=== PATIENT | male | born 1965 | race Hispanic/Latino ===

== ENCOUNTER 2016-10-22 07:37 | Inpatient (IN) | payer MEDICARE, MEDICAID ==
[2016-10-22 07:47] VITALS: BMI 32.5
[2016-10-22] MEDS ORDERED: Sodium Chloride 0.9% 1,000 ML IV STA (08:49)
[2016-10-22 08:52] LABS: ADD MANUAL DIFF? NO
--- NOTE | 2016-10-22 08:59 | RAD ---
HISTORY: syncope COMPARISON: 01/18/2016 FINDINGS: LUNGS: No active pulmonary disease. PLEURA: No significant pleural effusion identified, no pneumothorax apparent. CARDIOVASCULAR: Normal. OSSEOUS STRUCTURES: No significant abnormalities. VISUALIZED UPPER ABDOMEN: Normal. OTHER FINDINGS: None. IMPRESSION: No active disease.
[2016-10-22 09:05] LABS: BASO # 0.01 K/mm3 (0.0-2.0); BASO % 0.1 % (0.0-3.0); EOS % 0.2 % (1.5-5.0); GRAN # 11.09 (1.4-6.5); GRAN % 89.8 % (50.0-68.0); HEMATOCRIT 35.5 % (42.0-52.0); LYMPH # 0.5 (1.2-3.4); LYMPH % 3.7 % (22.0-35.0); MEAN CELL VOLUME 87.2 fL (80.0-105.0); MEAN CORPUSCULAR HEMOGLOBIN 30.7 pg (25.0-35.0); MEAN CORPUSCULAR HGB CONC 35.2 g/dl (31.0-37.0); MEAN PLATELET VOLUME 10.9 fl (7.0-11.0); MONO # 0.8 (0.1-0.6); MONO % 6.2 % (1.0-6.0); PLATELET COUNT 85 10^3/uL (120.0-450.0); RED CELL DISTRIBUTION WIDTH 13.1 % (11.5-14.5); WHITE BLOOD COUNT 12.3 10^3/ul (4.5-11.0)
[2016-10-22 09:09] LABS: ALB/GLOB RATIO 1.1 (1.1-1.8); BILIRUBIN,TOTAL 2.1 mg/dL (0.2-1.3); CALCIUM 9.3 mg/dL (8.4-10.5); POTASSIUM 4.5 mmol/L (3.6-5.0); TOTAL PROTEIN 8.1 g/dL (5.8-8.3)
[2016-10-22 09:14] LABS: INR 1.04 (0.93-1.08); PARTIAL THROMBOPLASTIN TIME 26.1 Seconds (23.7-30.8)
[2016-10-22 09:25] LABS: TROPONIN I 0.01 ng/mL
--- NOTE | 2016-10-22 09:30 | ED PDOC ---
Arrival/HPI - General Chief Complaint: Syncope Time Seen by Provider: 10/22/16 08:03 Historian: Patient - History of Present Illness Narrative History of Present Illness (Text): 10/22/16 08:00 A 51 year old male, whose past medical history includes reoccurring syncopal episodes, who presents to the emergency department for evaluation after a syncopal episode. Patient reports for the past 2-3 days he has had multiple syncopal episodes. He states 1 hour prior to arrival, he stoop up and walked a few steps, when be began to feel dizzy and "passed-out." Patient reports right shoulder pain that began after the fall. He states after "passing out" he is able to get up on his own and feels completely fine. Patient denies any chest pain, shortness of breath, nausea, vomiting, or other complaints at this time. PMD: Dr. Monet Time/Duration: 1 hour Symptom Onset: Sudden Symptom Course: Resolved Quality: Other Activities at Onset: Light Context: Walking, Home Past Medical History - Provider Review Nursing Documentation Reviewed: Yes - Infectious Disease Hx of Infectious Diseases: None - Cardiac Hx Cardiac Disorders: No - Pulmonary Hx Respiratory Disorders: No - Neurological Hx Neurological Disorder: No - HEENT Hx HEENT Disorder: No - Renal Hx Renal Disorder: No - Endocrine/Metabolic Hx Endocrine Disorders: Yes Hx Diabetes Mellitus Type 2: Yes - Hematological/Oncological Hx Blood Disorders: No - Integumentary Hx Dermatological Disorder: No - Musculoskeletal/Rheumatological Hx Musculoskeletal Disorders: No - Gastrointestinal Hx Gastrointestinal Disorders: No - Genitourinary/Gynecological Hx Genitourinary Disorders: No - Psychiatric Hx Psychophysiologic Disorder: No Hx Bipolar Disorder: Yes Hx Substance Use: No - Surgical History Hx Thyroidectomy: Yes - Anesthesia Hx Anesthesia: No Hx Anesthesia Reactions: No Hx Malignant Hyperthermia: No Family/Social History - Physician Review Nursing Documentation Reviewed: Yes Family/Social History: Unknown Family HX Smoking Status: Never Smoked Hx Alcohol Use: No Hx Substance Use: No Allergies/Home Meds Allergies/Adverse Reactions: Allergies No Known Allergies Allergy (Verified 10/22/16 07:46) Home Medications: Home Meds Medication Instructions Recorded Confirmed Ativan 1 mg PO BID 01/19/16 10/22/16 Paliperidone Palmitate [Invega 156 mg IM Q30D 01/19/16 10/22/16 Sustenna] metFORMIN [glucOPHAGE] 850 mg PO BID 01/19/16 10/22/16 Review of Systems - Review of Systems Constitutional: absent: Fevers Eyes: absent: Vision Changes ENT: absent: Rhinorrhea Respiratory: absent: SOB, Cough Cardiovascular: Syncope. absent: Chest Pain Gastrointestinal: absent: Abdominal Pain, Nausea, Vomiting Genitourinary Male: absent: Dysuria Musculoskeletal: Other (right shoulder pain). absent: Back Pain, Neck Pain Skin: absent: Rash Neurological: Dizziness. absent: Headache Endocrine: absent: Polyuria Psychiatric: absent: Depression Physical Exam - Physical Exam Narrative Physical Exam (Text): Head: Atraumatic. Normocephalic. Eyes: PERRL. EOMI. Conjunctivae are not pale. ENT: Mucous membranes are moist and intact. Oropharynx is clear and symmetric. Neck: Supple. Full ROM. No JVD. No lymphadenopathy. Cardiovascular: Tachycardia. Regular rhythm. No murmurs, rubs, or gallops. Distal pulses are 2+ and symmetric. Pulmonary/Chest: No evidence of respiratory distress. Clear to auscultation bilaterally. No wheezing, rales or rhonchi. Abdominal: Soft and non-distended. There is no tenderness. No rebound, guarding, or rigidity. No organomegaly. Good bowel sounds. Back: No CVA tenderness. No midline pain or deformity. Extremities: No edema. No cyanosis. No clubbing. No calf tenderness. Tenderness to the right shoulder with palpation and range of motion. Deformity noted. NO clavicular pain. Distal pulses inatct. Skin: Skin is warm and dry. No petechiae. No purpura. Pale. Neurological: Alert, awake, and oriented to person, place, time, and situation. Normal speech. Motor and sensory intact. No meningeal signs. Psychiatric: Good eye contact. Normal interaction, affect, and behavior. 10/23/16 08:18 Vital Signs Reviewed: Yes Vital Signs Temp Pulse Resp BP Pulse Ox 10/22/16 13:38 101 H 19 130/40 L 100 10/22/16 11:38 96 H 19 110/51 L 100 10/22/16 09:38 98 H 18 99/60 L 100 10/22/16 07:40 98.2 F 101 H 18 102/51 L 100 Temperature: Afebrile Blood Pressure: Hypotensive Pulse: Regular Respiratory Rate: Tachypneic Appearance: Positive for: Well-Appearing, Non-Toxic, Comfortable Pain Distress: None Mental Status: Positive for: Alert and Oriented X 3 Finger Stick Blood Glucose: 145 Medical Decision Making ED Course and Treatment: 10/22/16 08:00 Impression: A 51 year old male for evaluation after a syncopal episode. Patient also complains of right shoulder pain. Differential Diagnosis include but are not limited to: vasovagal syncope vs. electrolyte imbalance vs. ACS vs. fracture vs. sprain Plan: Will obtain EKG, Chest X-ray and labs to rule out cardiac causes. Will obtain right shoulder x-ray to rule out fractures. Will give patient IV fluids and reevaluate. Prior Visits: Notes and results from previous visits were reviewed. The patient last presented to the emergency department on 01/18/16 for evaluation after a syncopal episode. Progress Notes: Patient states that "in the past" he would "pass out a lot". He states he does not know the reason why this happened in the past. He reports multiple episodes of passing out over the past several days. States that he will "take a few steps" then "I feel a little dizzy then I pass out". He reports some back pain from fall two days ago. Denies incontinence or tongue biting. States that he "gets right up" and "I feel fine after". Reports he did not seek evaluation as he feels better immediately. This am he reports shoulder injury after fall. 10/22/16 09:00 Chest X-ray: Creator : Masood Mckinney MD COMPARISON: 01/18/2016 FINDINGS: LUNGS: No active pulmonary disease. PLEURA: No significant pleural effusion identified, no pneumothorax apparent. CARDIOVASCULAR: Normal. OSSEOUS STRUCTURES: No significant abnormalities. VISUALIZED UPPER ABDOMEN: Normal. OTHER FINDINGS: None. IMPRESSION: No active disease. 10/22/16 11:[address]: Creator : Masood Mckinney MD COMPARISON: 01/18/2016 FINDINGS: HEMORRHAGE: No intracranial hemorrhage. BRAIN: No mass effect or edema. Mild diffuse atrophy consistent with age. No evidence of acute infarct. VENTRICLES: Unremarkable. No hydrocephalus. CALVARIUM: Unremarkable. PARANASAL SINUSES: Unremarkable as visualized. No significant inflammatory changes. MASTOID AIR CELLS: Unremarkable as visualized. No inflammatory changes. OTHER FINDINGS: None. IMPRESSION: No intracranial mass, hemorrhage or evidence of acute infarct. No interval change. 10/22/16 12:00 Right Shoulder X-ray: Creator : David Cast MD COMPARISON: No prior. FINDINGS: BONES: There is a displaced comminuted fracture of the humeral neck JOINTS: Normal. Glenohumeral and acromioclavicular joints preserved. No osteoarthritis. SOFT TISSUES: Normal. OTHER FINDINGS: None. IMPRESSION: There is a displaced comminuted fracture of the humeral neck 10/22/16 12:01 Shoulder fracture reviewed with patient, who states PMD is Dr. Monet. Sling applied, patient reports no significant pain while in sling. NV intact. He has no focal neuro deficits, on re-exam BP is improved. CR mildly elevated but he denies vomiting or diarrhea or decreased po intake. WBC elevated although afebrile. Given repeated syncopal episodes will admit to telemetry for further cardiac and neurologic monitoring. Case discussed with Dr. Bauman, covering for DR. Monet, who is aware and agrees with the plan to admit the patient to Telemetry under his services for syncope and shoulder fracture. Dr. Kerns consulted. I have discussed the results and plan with the patient, who expresses understanding. Patient given the opportunity to ask question, all questions were answered and there is agreement with the plan to be admitted to the hospital. 10/23/16 08:20 - Lab Interpretations Lab Results: 10/22/16 08:44 10/22/16 08:44 Lab Results 10/22/16 08:44: WBC 12.3 H D, RBC 4.07, Hgb 12.5 L, Hct 35.5 L, MCV 87.2, MCH 30.7, MCHC 35.2, RDW 13.1, Plt Count 85 L, MPV 10.9, Gran % 89.8 H, Lymph % ( Auto) 3.7 L, [place] % (Auto) 6.2 H, Eos % (Auto) 0.2 L, Baso % (Auto) 0.1, Gran # 11.09 H, Lymph # 0.5 L, [place] # 0.8 H, Eos # 0.0, Baso # 0.01, PT 11.2, INR 1.04 , APTT 26.1, Sodium 138, Potassium 4.5, Chloride 101, Carbon Dioxide 20 L, Anion Gap 22 H, BUN 29 H, Creatinine 1.6 H, Est GFR ( Amer) 56, Est GFR ( Non-Af Amer) 46, Random Glucose 140 H, Calcium 9.3, Total Bilirubin 2.1 H, AST 20, ALT 28, Alkaline Phosphatase 76, Lactate Dehydrogenase 307 L, Total Creatine Kinase 97, Troponin I 0.01, Total Protein 8.1, Albumin 4.3, Globulin 3.8, Albumin/Globulin Ratio 1.1 10/22/16 07:58: POC Glucose (mg/dL) 145 H I have reviewed the lab results: Yes - RAD Interpretation Radiology Orders: 10/22/16 08:26 SHOULDER RIGHT [RAD] Stat 10/22/16 08:28 CHEST PORTABLE [RAD] Stat 10/22/16 11:17 HEAD W/O CONTRAST [CT] Stat - Medication Orders Current Medication Orders: Sodium Chloride (Sodium Chloride 0.9%) 1,000 mls @ 100 mls/hr IV .Q10H STEPH Last Admin: 10/23/16 02:28 Dose: 100 MLS/HR eMAR Start Stop Document 10/23/16 02:28 FDE (Rec: 10/23/16 02:28 FDE [facility] [id number]) Intravenous Solution Start Date 10/23/16 Start Time 02:28 Metformin HCl (Glucophage) 850 mg PO BID STEPH Last Admin: 10/22/16 18:26 Dose: 850 MG Non-Formulary Medication (Paliperidone Palmitate [Invega Sustenna]) 156 mg IM Q30D STEPH Discontinued Medications Sodium Chloride (Sodium Chloride 0.9%) 1,000 mls @ 1,000 mls/hr IV .Q1H STA Stop: 10/22/16 09:48 Last Admin: 10/22/16 08:58 Dose: 1,000 MLS/HR eMAR Start Stop Document 10/22/16 08:58 OCS (Rec: 10/22/16 08:58 OCS [facility] [email or web address]) Intravenous Solution Start Date 10/22/16 Start Time 08:58 - Scribe Statement The provider has reviewed the documentation as recorded by the Scribe Fe Nguyen Provider Scribe Attestation: All medical record entries made by the Scribe were at my direction and personally dictated by me. I have reviewed the chart and agree that the record accurately reflects my personal performance of the history, physical exam, medical decision making, and the department course for this patient. I have also personally directed, reviewed, and agree with the discharge instructions and disposition. Disposition/Present on Arrival - Present on Arrival Any Indicators Present on Arrival: No History of DVT/PE: No History of Uncontrolled Diabetes: No Urinary Catheter: No History of Decub. Ulcer: No History Surgical Site Infection Following: None - Disposition Have Diagnosis and Disposition been Completed?: Yes Diagnosis: Syncope, Shoulder fracture, Renal insufficiency Disposition: HOSPITALIZED Disposition Time: 12:01 Patient Plan: Admission Patient Problems: Current Active Problems Problem Status Diagnosed Shoulder fracture Acute Syncope Acute Condition: FAIR
--- NOTE | 2016-10-22 11:52 | CT ---
PROCEDURE: CT HEAD WITHOUT CONTRAST. HISTORY: syncope COMPARISON: 01/18/2016 TECHNIQUE: Axial computed tomography images were obtained through the head/brain without intravenous contrast. Radiation dose: Total exam DLP = 725.84 mGy-cm. This CT exam was performed using one or more of the following dose reduction techniques: Automated exposure control, adjustment of the mA and/or kV according to patient size, and/or use of iterative reconstruction technique. FINDINGS: HEMORRHAGE: No intracranial hemorrhage. BRAIN: No mass effect or edema. Mild diffuse atrophy consistent with age. No evidence of acute infarct. VENTRICLES: Unremarkable. No hydrocephalus. CALVARIUM: Unremarkable. PARANASAL SINUSES: Unremarkable as visualized. No significant inflammatory changes. MASTOID AIR CELLS: Unremarkable as visualized. No inflammatory changes. OTHER FINDINGS: None. IMPRESSION: No intracranial mass, hemorrhage or evidence of acute infarct. No interval change.
--- NOTE | 2016-10-22 11:58 | RAD ---
PROCEDURE: Radiographs of the Right Shoulder HISTORY: injury COMPARISON: No prior. FINDINGS: BONES: There is a displaced comminuted fracture of the humeral neck JOINTS: Normal. Glenohumeral and acromioclavicular joints preserved. No osteoarthritis. SOFT TISSUES: Normal. OTHER FINDINGS: None. IMPRESSION: There is a displaced comminuted fracture of the humeral neck
--- NOTE | 2016-10-22 15:02 | CT ---
PROCEDURE: CT of the right shoulder HISTORY: right shoulder fracture, request by Dr. Noe COMPARISON: TECHNIQUE: Sagittal and coronal reconstructions were performed FINDINGS: There is a comminuted fracture of the right humeral neck with numerous fragments. The articular surface of the humeral head is intact. The bony glenoid is intact. The acromioclavicular joint is unremarkable. IMPRESSION: Displaced comminuted fracture of the humeral neck
[2016-10-22] MEDS: Sodium Chloride 0.9% 1,000 ML IV SCH ×2 (15:28→16:12)
--- NOTE | 2016-10-22 15:41 | CON ---
DATE: 10/22/2016 The patient is currently in the Emergency Room, admitted by Dr. Lopez for a comminuted fracture, right proximal humerus, with an x-ray showing no obvious humeral head split fracture, just a comminut ed fracture that is impacted. He has good neurovascular status. This occurred today when he fell. He lives alone. He is going to be admitted because of a syncopal episode, and will follow him closel y here. The main form of treatment to be treated conservatively is a collar and cuff, no weight on t he right arm, no range of motion of the right shoulder, and to follow him closely to make sure there is callus formation. If the fracture does not heal, he would need an open reduction and internal fix ation. So will follow him in the hospital and have good support as an outpatient. I would have to s ee him every 10 days or so. Continue the collar and a cuff and the strict instructions not to put we ight on the right shoulder and not to move excessively the right shoulder. There is about an 80% cara nce this fracture will heal on its own and will avoid surgery this way. David Kerns DO cc: [id number] TT: 10/22/2016 15:41:13 Confirmation # [id number] Dictation # [id number] mn
[2016-10-22 18:27] LABS: PH,URINE 5.5 (4.7-8.0); URINE BILIRUBIN MODERATE (NEGATIVE); URINE BLOOD LARGE (NEGATIVE); URINE GLUCOSE (UA) NEGATIVE (NEGATIVE); URINE KETONE 15 mg/dL (NEGATIVE); URINE LEUKOCYTE ESTERASE NEGATIVE Leu/uL (NEGATIVE); URINE PROTEIN 100 mg/dL (<30 mg/dL)
[2016-10-22 18:30] LABS: URINE APPEARANCE SL CLOUDY (CLEAR); URINE COLOR DARK YELLOW (YELLOW)
--- NOTE | 2016-10-22 18:30 | CARD ---
APPROVED REPORT EKG Measurement Heart [id number] MD [id number] <Conclusion> Sinus tachycardia Otherwise normal ECG
[2016-10-22 18:31] LABS: URINE BACTERIA MANY (NEG); URINE EPITHELIAL CELLS 0 - 2 /hpf (0-5); URINE RBC TNTC /hpf (0-2)
[2016-10-22 18:32] LABS: URINE AMORPHOUS SEDIMENT FEW
[2016-10-23] MEDS: Sodium Chloride 0.9% 1,000 ML IV SCH ×3 (02:28→20:35)
--- NOTE | 2016-10-23 10:20 | CON ---
DATE: 10/23/2016 SERVICE: Cardiology. REASON FOR CONSULTATION: Syncope, recurrent. BRIEF CLINICAL HISTORY: This is a 51-year-old male with past medical history significant for bipolar disorder, came to the Emergency Room after having a syncopal episode and sustained fracture of right humeral bone. The patient says that he has had multiple syncopal episodes over a period of 1 year, getting more and more. Whenever he tries to stand up, he feels dizzy and feels like he is going to f all. He denies any chest pain, denies any palpitation. Denies any shortness of breath, denies any p alpitation. PAST MEDICAL HISTORY: Significant for diabetes type 2 and bipolar disorder. Significant for diabete s, on oral hypoglycemic agent. SOCIAL HISTORY: Denies smoking. Denies any history of alcohol abuse. ALLERGIES: No known drug allergy. PAST SURGICAL HISTORY: Nothing significant. FAMILY HISTORY: No history of coronary artery disease. REVIEW OF SYSTEMS: As per HPI, 14-points, otherwise no other complaints. Previous cardiac workup as follows: The patient had a stress test on 02/05/2016 that shows normal primitivo cardial perfusion study, normal gated wall motion, ejection fraction 80%. The patient had echocardio graphy done on 01/19/2016 that showed ejection fraction 55%, trace to mild mitral regurgitation, trace to mild tricuspid regurgitation, proximal septal thickening noted. No evidence of IHSS, dated 01/19/20 16. PHYSICAL EXAMINATION: VITAL SIGNS: Temperature afebrile, heart rate 110, blood pressure 106/70. HEENT: PERRLA. Extraocular muscles intact. NECK: Supple. No carotid bruits. No thyromegaly. CHEST: Clear to auscultation. HEART: S1, S2 regular. ABDOMEN: Soft. EXTREMITIES: Clubbing and cyanosis negative. LABORATORY DATA: Blood workup as follows: WBC ____, hemoglobin ____, hematocrit 35.5, platelet coun t 85. Chemistry shows sodium 130, potassium 4.5, chloride 101, carbon dioxide 20, anion gap of 22, B UN 29, creatinine 1.6. IMPRESSION: Recurrent syncope, rule out orthostatic hypotension, negative cardiac workup in January. T he patient had a stress test, ejection fraction 80%, no arrhythmia, no ischemia. The patient had ech o also in January, preserved LV function, ejection fraction 55%, trace to mild mitral regurgitation, tra ce to mild tricuspid regurgitation, systolic pressure 32. RECOMMENDATION: We will get the TSH, lipid profile while the patient is in sinus tachycardia ____ or thostatic hypotension, gave a Holter monitor for 24 hours. We will follow with you. If the stress t est is negative, may consider tilt table for EP evaluation. We will follow with you. The last time the patient was admitted in January, found to be significant orthostatic hypotension. At that time, lying pressure was 132, standing 124. The patient dropped significant blood pressure 81. The patient was treated with IV fluid. Most likely secondary to orthostatic again. Will check orth ostatics. We will follow with you. Thank you, Dr. Lopez, for providing the opportunity in taking care of this patient. Gideon Zamudio MD cc: [id number] TT: 10/23/2016 10:19:46 Confirmation # [id number] Dictation # [id number] georgi
[2016-10-23 10:59] LABS: ADD MANUAL DIFF? NO
[2016-10-23 11:00] LABS: BASO # 0.01 K/mm3 (0.0-2.0); BASO % 0.2 % (0.0-3.0); EOS % 0.2 % (1.5-5.0); GRAN # 5.06 (1.4-6.5); GRAN % 79.5 % (50.0-68.0); LYMPH # 0.7 (1.2-3.4); LYMPH % 10.5 % (22.0-35.0); MEAN CELL VOLUME 85.3 fL (80.0-105.0); MEAN CORPUSCULAR HEMOGLOBIN 30.4 pg (25.0-35.0); MEAN CORPUSCULAR HGB CONC 35.6 g/dl (31.0-37.0); MEAN PLATELET VOLUME 9.6 fl (7.0-11.0); MONO # 0.6 (0.1-0.6); MONO % 9.6 % (1.0-6.0); PLATELET COUNT 65 10^3/uL (120.0-450.0); RED CELL DISTRIBUTION WIDTH 12.9 % (11.5-14.5); WHITE BLOOD COUNT 6.4 10^3/ul (4.5-11.0)
[2016-10-23 11:52] LABS: TROPONIN I 0.91 ng/mL
[2016-10-23] MEDS ORDERED: Enoxaparin 100 mg Syringe SC STA (11:58)
--- NOTE | 2016-10-23 12:33 | CON ---
DATE: 10/23/2016 CHIEF COMPLAINT: Syncope. HISTORY OF PRESENT ILLNESS: This is a 51-year-old man who is well known to me from previous hospital ization, history of bipolar disorder, type 2 diabetes mellitus, history of syncope secondary hypoglyc emic events and orthostatic hypotension in 01/2016. Again, comes in to the hospital after having mult iple syncopal episodes. Prior to his arrival to the hospital, he stood up and walked a few steps and began to feel dizzy and "passed out." He fell and hit his right shoulder and ended up having a disp laced comminuted fracture of his right humeral neck which is undergoing orthopedic management by Dr. Kerns. Currently, he has been having fluctuating elevated and low blood sugars. He had a i ght elevated troponin of 0.91 today. He has acute on chronic kidney injury with elevated BUN and cre atinine of 29/1.6. He came in with low systolic blood pressure of 102/51 and 99/60. He is not on an y midodrine or ProAmatine. Currently, he is moving all extremities. He does have evidence of some m ild diabetic neuropathy based on my neurological exam. Currently, he denies any chest pain, shortnes s of breath, or palpitations. REVIEW OF SYSTEMS: A 14-point review of systems is negative except for the HPI. PAST MEDICAL HISTORY: Diabetes type 2, bipolar disorder. He is on oral hypoglycemics, history of sy ncope secondary to hypoglycemia and orthostatic hypotension from 01/2016. SOCIAL HISTORY: No illicit drug use, smoking, or ETOH abuse. ALLERGIES: No known drug allergies. FAMILY HISTORY: Noncontributory. PHYSICAL EXAMINATION: VITAL SIGNS: Temperature of 98.2, pulse rate of 108, blood pressure 110/67, respiratory rate of 19, oxygen saturation 98% via room air. GENERAL: The patient is sitting up in bed in no acute distress. HEENT: Atraumatic, normocephalic. PERRLA. Extraocular muscles intact. NECK: Supple, no JVD, no adenopathy noted. LUNGS: Clear to auscultation. No adventitious sounds. HEART: S1, S2, normal rate and rhythm. No murmurs, rubs, or gallops. ABDOMEN: Soft, nontender, nondistended. Bowel sounds are present. EXTREMITIES: No clubbing, no cyanosis. Peripheral pulses 2+ felt bilaterally. NEUROLOGIC: The patient is alert, oriented to person, place, month and year. Speech is fluent witho ut any errors. Recall after 5 minutes is 0/3. Poor attention span, slowed thought process. Cranial nerves II-XII are intact. MOTOR: Slight increased tone throughout. Moves all extremities. No pronator drift seen. SENSORY: Decreased light touch and pinprick up to the calves bilaterally. Decreased vibration of th e toes. DTRs are 2+ throughout and 1 at the ankles. COORDINATION: Anxowk-ju-bcqn intact. GAIT: Deferred for now. LABORATORY DATA: Sodium is 138, potassium 4.5, chloride 101, carbon dioxide of 20, BUN of 29, creati nine 1.6, random glucose of 153. ASSESSMENT AND PLAN: This is a 51-year-old man with past medical history of bipolar disorder, type 2 diabetes mellitus, history of syncopal episodes secondary to hypoglycemic events and orthostatic hyp otension and dehydration in 01/2016, who presented with multiple syncopal events and we therefore were consulted. Likely, syncope is likely secondary to cerebral hypoperfusion from low blood pressure an d he has evidence of orthostatic hypotension in the past. He also has history of transient hypoglyce zohra events from his diabetes. At this time, I recommend: 1. For him to be put on something like ProAmatine or midodrine for his orthostatic hypotension. Homer id sudden movements. 2. Get repeat orthostatic vitals. 3. He should be on aspirin 81 mg p.o. daily for stroke prevention. 4. Adjust his diabetic medications to avoid hypoglycemic events and needs more of a diabetic educati on on how to check his blood sugars. 5. Monitor his electrolytes and hydrate considering his mild acute kidney injury and mild dehydratio n. At this time, continue with current present medical management. Get a physical therapy assessmen t. No further neurological workup needed at this time. Thank you for this consult. Pernell Beckford MD cc: [id number] TT: 10/23/2016 12:32:18 Confirmation # [id number] Dictation # [id number] tn
--- NOTE | 2016-10-23 15:56 | CARD ---
APPROVED REPORT EXAM: Two-dimensional and M-mode echocardiogram with Doppler and color Doppler. INDICATION Syncope 2D DIMENSIONS Left Atrium (2D)3.7 (1.6-4.0cm)IVSd1.0 (0.7-1.1cm) LVDd4.5 (3.9-5.9cm)PWd1.1 (0.7-1.1cm) LVDs2.9 (2.5-4.0cm)FS (%) 36.1 % LVEF (%)65.9 (>50%) M-Mode DIMENSIONS Aortic Root3.30 (2.2-3.7cm)Aortic Cusp Exc.2.30 (1.5-2.0cm) Aortic Valve AoV Peak Holpzgzs436.0cm/Inocencio Peak GR.9mmHg Mitral Valve MV E Syhwcqzz02.2cm/sMV A Fvmcddjy49.7cm/sE/A ratio0.7 TDI Lateral E' Peak V11.30cm/sMedial E' Peak V8.09cm/sE/Lateral E'4.5 E/Medial E'6.3 Pulmonary Valve PV Peak Qknxprin16.3cm/sPV Peak Grad.3mmHg Tricuspid Valve TR Peak Tussrhec758gf/sRAP [id number] Peak Gr.22mmHg [id number] LEFT VENTRICLE The left ventricle is normal size. There is normal left ventricular wall thickness. The left ventricular function is normal. The left ventricular ejection fraction is within the normal range. There is normal LV segmental wall motion. Transmitral Doppler flow pattern is Grade I-abnormal relaxation pattern. RIGHT VENTRICLE The right ventricle is normal size. There is normal right ventricular wall thickness. The right ventricular systolic function is normal. ATRIA The left atrium size is normal. The right atrium size is normal. AORTIC VALVE The aortic valve is not well visualized. MITRAL VALVE The mitral valve is normal in structure. TRICUSPID VALVE The tricuspid valve is normal in structure. GREAT VESSELS The aortic root is normal in size. The IVC is normal in size and collapses >50% with inspiration. <Conclusion> Poor Echo window The left ventricle is normal size. There is normal left ventricular wall thickness. The left ventricular function is normal. The left ventricular ejection fraction is within the normal range. There is normal LV segmental wall motion. Transmitral Doppler flow pattern is Grade I-abnormal relaxation pattern.
[2016-10-23 16:47] LABS: MEAN CELL VOLUME 85.3 fL (80.0-105.0); MEAN CORPUSCULAR HEMOGLOBIN 30.9 pg (25.0-35.0); MEAN CORPUSCULAR HGB CONC 36.2 g/dl (31.0-37.0); MEAN PLATELET VOLUME 10.3 fl (7.0-11.0)
[2016-10-23 16:51] LABS: HEMATOCRIT 23.2 % (42.0-52.0)
--- NOTE | 2016-10-23 18:22 | US ---
PROCEDURE: Bilateral carotid artery duplex ultrasound HISTORY: Carotid stenosis syncope PHYSICIAN(S): Masood Mcfarland MD. TECHNIQUE: Duplex sonography and color-flow Doppler were used to evaluate the carotid bifurcations and limited segments of the vertebral arteries bilaterally. FINDINGS: There is mild smooth hypoechoic plaque noted at the carotid bifurcations bilaterally. The peak systolic velocity in the proximal right internal carotid artery is 71 cm/sec. This corresponds to a 0-19 percent proximal right ICA stenosis. Normal systolic velocities are noted in the proximal right external carotid artery. There is antegrade flow in the right vertebral artery. The peak systolic velocity in the proximal left internal carotid artery is 61 cm/sec. This corresponds to a 0-19 percent proximal left ICA stenosis. Normal systolic velocities are noted in the proximal left external carotid artery. There is antegrade flow in the left vertebral artery. IMPRESSION: 1. Bilateral 0-19% proximal ICA stenoses. 2. Antegrade flow in both vertebral arteries.
[2016-10-23] MEDS ORDERED: Iohexol 240 (50 ml) ONE (19:32)
[2016-10-23 19:54] LABS: ADD MANUAL DIFF? NO
--- NOTE | 2016-10-23 20:07 | CON ---
DATE: 10/23/2016 ADDENDUM Addendum to initial consult dictated this morning REASON FOR ADDENDUM: The patient dropped H and H almost 2 grams since I saw last time. Initial hemo globin 12.5 when I saw the patient and hematocrit 35.5. Repeat H and H was done. Repeat CBC was don e around 11 that shows a hemoglobin 8.9, yesterday was 12.5. Hematocrit 25. Before that, patient wa s given Lovenox because troponin came back 0.91 so nurse called me that troponin was 0.91, so Lovenox was given and Plavix was given and plan was to do the cardiac cath tomorrow. But, when the H and H reported the drop in hemoglobin to 8.9, so Plavix was discontinued. Repeat CBC was done to find the lab error and lab error and ____ was continued and type and crossmatch was done to see if there was a ny GI bleed, so a stool guaiac was sent and cath on hold now. We will monitor H and H. Repeat anoth er CBC tonight and if it drops, we will give 2 units of packed RBCs. We will hold the cardiac cathet erization now until we clearly see ____ not dropping H and H. ____ this syncope could be secondary to GI bleed and orthostatic hypotension, though patient was significantly orthostatic hypotension also. When orthostasis was done, lying was 113 and standing 98, so ____ repeat H and H was done as well a s orthostatic and we will cancel the cath. Thank you, Dr. Lopez, for providing the opportunity in taking care of the patient. Gideon Zamudio MD cc:Pratik Lopez MD [id number] TT: 10/23/2016 20:06:49 Confirmation # [id number] Dictation # [id number] sn
[2016-10-23 20:27] LABS: BASO # 0.01 K/mm3 (0.0-2.0); BASO % 0.1 % (0.0-3.0); EOS % 0.3 % (1.5-5.0); GRAN # 5.17 (1.4-6.5); GRAN % 74.7 % (50.0-68.0); LYMPH # 1.1 (1.2-3.4); LYMPH % 15.5 % (22.0-35.0); MEAN CELL VOLUME 85.3 fL (80.0-105.0); MEAN CORPUSCULAR HEMOGLOBIN 30.5 pg (25.0-35.0); MEAN CORPUSCULAR HGB CONC 35.7 g/dl (31.0-37.0); MEAN PLATELET VOLUME 10.1 fl (7.0-11.0); MONO # 0.7 (0.1-0.6); MONO % 9.4 % (1.0-6.0); PLATELET COUNT 60 10^3/uL (120.0-450.0); WHITE BLOOD COUNT 6.9 10^3/ul (4.5-11.0)
[2016-10-23 20:28] LABS: TROPONIN I 0.59 ng/mL
[2016-10-23 20:38] LABS: HEMATOCRIT 22.7 % (42.0-52.0)
--- NOTE | 2016-10-23 22:25 | CP.PCM.PN ---
Subjective - Date & Time of Evaluation Date of Evaluation: 10/23/16 Time of Evaluation: 22:24 - Subjective Subjective: S:Patient was seen at bedside. Patient is anemic and there has been a order to transfuse PRBC. Has no complaints now. No sob, cp. Pertinent medical record war reviewed. O: Last Vital Signs 3 Temp 98.7 F 10/24/16 02:46 Pulse 121 H 10/24/16 02:46 Resp 18 10/24/16 02:46 BP 140/68 10/24/16 02:46 Pulse Ox 97 10/24/16 00:01 Awake, alert, not in distress. LUNGS:Normal breathing pattern. A:Anemia. Informed consent. P:Patient was explained in detail about blood transfusion including transfusion reaction,after discussion with patient he had no questions to ask about blood transfusion, was witnessed by nurse Lomeli who also cosigned consent form. Objective - Vital Signs/Intake and Output Vital Signs (last 24 hours): Temp Pulse Resp BP Pulse Ox 98.3 F 110 H 18 124/77 98 10/23/16 18:00 10/23/16 18:00 10/23/16 18:00 10/23/16 18:00 10/23/16 09:00 Intake and Output: 10/23/16 10/24/16 18:59 06:59 Intake Total 420 Output Total 425 Balance -5 - Medications Medications: Current Medications Sodium Chloride (Sodium Chloride 0.9%) 1,000 mls @ 100 mls/hr IV .Q10H REPLACED BY [facility] Last Admin: 10/23/16 20:35 Dose: 100 mls/hr Metformin HCl (Glucophage) 850 mg PO BID REPLACED BY [facility] Last Admin: 10/23/16 17:11 Dose: 850 mg Non-Formulary Medication (Paliperidone Palmitate [Invega Sustenna]) 156 mg IM Q30D REPLACED BY [facility] - Labs Labs: 10/23/16 19:45 PT 11.2 Seconds (9.9-11.8) 10/22/16 08:44 INR 1.04 (0.93-1.08) 10/22/16 08:44 APTT 26.1 Seconds (23.7-30.8) 10/22/16 08:44
--- NOTE | 2016-10-23 22:37 | CT ---
EXAM: CT Abdomen and Pelvis With Intravenous Contrast CLINICAL HISTORY: 51 years old, male; Signs and symptoms; Other: R/O retroperitoneal bleeding, anemia; Additional info: R/O retroperitonieal bleeding, anam[place] TECHNIQUE: Axial computed tomography images of the abdomen and pelvis with intravenous contrast. This CT exam was performed using one or more of the following dose reduction techniques: automated exposure control, adjustment of the mA and/or kV according to patient size, and/or use of iterative reconstruction technique. Coronal and sagittal reformatted images were created and reviewed. CONTRAST: 50 mL of oral only administered intravenously. EXAM DATE/TIME: 10/23/2016 7:29 PM COMPARISON: There are no prior studies for comparison. FINDINGS: Lower thorax: Heart size is normal. There is atelectasis at the lung bases. There is a small hiatal hernia. ABDOMEN: Liver: unremarkable Gallbladder and bile ducts: Gallbladder is partially distended with multiple calcified stones. Common bile duct is unremarkable. Pancreas: Pancreas is mildly atrophic. Spleen: The spleen is enlarged. Adrenals: Right adrenal is unremarkable. There is a small left adrenal nodule. Kidneys and ureters: Right kidney is unremarkable. There is a small amount of radiopaque material in the calyces possibly blood. There is a 6 mm proximal right ureteral stone at the L2 level. There is no pelvocaliectasis or proximal ureterectasis. Ureter distal to the stone is unremarkable. There is obstructive uropathy on the left. There is a 3.4 x 2.5 cm obstructing stone at the left ureteropelvic junction. There are small nonobstructing left upper pole left renal stones. There is a 12 mm left lower pole stone. There is a 9 mm left lower pole stone. There is perinephric periureteric stranding and edema. There is no left ureterectasis. Stomach and bowel: Stomach is partially distended with an air-fluid level. Rotation is normal. Small bowel is mildly distended with contrast and air. There is no obstruction.Appendix and terminal ileum are unremarkable. There is moderate stool throughout the colon. Appendix: See stomach and bowel PELVIS: Bladder: Bladder is partially distended. There is a small amount of radiopaque material in the bladder, small stones versus clot. Reproductive: Seminal vesicles and prostate are unremarkable. 6 mL vesicles and prostate ABDOMEN and PELVIS: Intraperitoneal space: There is no free air or free fluid. Retroperitoneal space: Psoas and iliac is muscles are unremarkable. There is no retroperitoneal hematoma. There is no abdominal wall hematoma. Bones/joints: There are degenerative changes in the osseus structures. Soft tissues: See above. Vasculature: There are vascular calcifications. Lymph nodes: There is no pathologic adenopathy. IMPRESSION: Left obstructive uropathy with a 3.4 x 2.5 mm stone at the left ureterovesical junction, additional left renal stones as described above; 6 mm nonobstructing proximal right ureteral stone; possible blood in right collecting system and bladder; no retroperitoneal hematoma; gallstones; splenomegaly; ileus, no obstruction Additional findings as described above.
--- NOTE | 2016-10-24 02:05 | CON ---
DATE: 10/23/2016 CONSULT REQUESTED BY: Dr. Lopez. REASON FOR CONSULTATION: Anemia, Thrombocytopenia, splenomegaly, syncope. HISTORY OF PRESENT ILLNESS: The patient is a 51-year-old male admitted to the hospital with syncope. He had multiple episodes of syncope prior to arrival to the hospital. He passed out and he was found to have fracture right humerus due to fall. He has history of diabetes mellitus, controlled on current meds.. He also has a history of bipolar disorder. No current issues. Had thyroidectomy for unknown reason. He is not on thyroid supplements. Denies any history of dark colored stools. Denies any history of prior blood transfusion. On admission, the hemoglobin was 12.5. He also had an elevated white count of 12,000, hemoglobin declined to 8.1 g/dL today, platelet count is also low; 85,000 on admission and 60,000 now. CAT scan of the abdomen and pelvis done showed splenomegaly and left-sided ureteric stone. Coags are negative. He also had elevated creatinine on admission at 1.6, normal now. . Troponins were elevated today at 0.91. He also denies any history of heavy alcohol abuse. PAST MEDICAL HISTORY: Diabetes mellitus type 2, bipolar disorder and hypothyroidism. PAST SURGICAL HISTORY: Thyroidectomy. FAMILY HISTORY: No positive history of mother or father. PERSONAL HISTORY: Never smoked. No history of alcohol abuse. SOCIAL HISTORY: Lives at home. ALLERGIES: No known drug allergies. HOME MEDICATIONS: Ativan 1 mg p.o. b.i.d., Invega 156 mg IM every month, metformin 850 mg p.o. b.i.d. REVIEW OF SYSTEMS: As per HPI. Rest of 12-point review of system reviewed and negative. PHYSICAL EXAMINATION: GENERAL: Comfortable in bed, in no acute distress. VITAL SIGNS: Temperature 98.2, heart rate is 100 per minute, respiratory 18 per minute, blood pressure 102/51, pulse ox is 100% on room air. HEENT: Normal. NECK: No lymphadenopathy. CARDIOVASCULAR: S1, S2 normal. No murmur, no gallop. CHEST: Air entry present, equal bilateral. No added sound. ABDOMEN: Soft, nontender, obese. No hepatosplenomegaly. No rebound tenderness. EXTREMITIES: Bilateral legs, no edema. SKIN: No petechia, no rash. CENTRAL NERVOUS SYSTEM: Alert, oriented x 3, no focal sensorimotor deficit. PSYCH: Mood, affect flat. Extrimity: no petechie, rash, skin intact, pedal pulsation present. LABORATORY DATA: White count 6.9, hemoglobin 8.1, hematocrit 22.7, platelet count 60. Sodium 138, potassium 4.5, creatinine 1.6. LDH 307. Troponin 0.91. IMAGING: As per HPI. CURRENT MEDICATIONS: Lasix 40 mg daily, metformin 850 mg p.o. b.i.d., Invega 156 mg IM every 30 days, IV fluid at 100 mL an hour. ASSESSMENT: 1. Anemia. 2. Thrombocytopenia. 3. Splenomegaly. 4. Leukocytosis-resolved. 5. Bipolar. 6. Syncope. 7. Diabetes mellitus type 2. PLAN: 1. Anemia, Thrombocytopenia, splenomegaly : It is normocytic, normochromic. No obvious bleeding. We will do workup for anemia, iron studies, B12, folate level, protein electrophoresis and immunofixation, stool occult blood, TSH. He received 2 units of blood transfusion today. He also has thrombocytopenia. Anemia, thrombocytopenia, also can be related to Invega, which can cause bone marrow suppression and granulocytosis. Autoimmune thrombocytopenia needs to be ruled out, antiplatelet antibody ordered. Bilirubin was elevated on admission to 2.1. We will repeat the LFTs with a.m. labs. LDH is low. UA showed moderate bilirubin. We will review the peripheral smear for hemolysis. haptoglobin LFTs and LDH with a.m. labs ordered spleen size not mentioned in report. 2. Syncope, likely related to anemia. CT head unremarkable. Neurology workup in progress. 3. Diabetes mellitus. Blood sugar fairly controlled on metformin and Invega. 4. Cardiology, Troponin elevated. He is on tele monitoring, cardiology, Dr. Zamudio evaluated. 5. Bipolar disorder. No active issues. Thank you, Dr. Lopez, for allowing us to participate in the patient's care. We will continue to follow closely. Frannie Cameron MD cc: [id number] TT: 10/24/2016 02:05:06 Confirmation # [id number] Dictation # [id number] roger PEARL
[2016-10-24] MEDS: Sodium Chloride 0.9% 1,000 ML IV SCH ×2 (06:33→17:53)
[2016-10-24 07:48] LABS: ADD MANUAL DIFF? NO
[2016-10-24 07:53] LABS: BASO # 0.01 K/mm3 (0.0-2.0); BASO % 0.2 % (0.0-3.0); EOS # 0.1 (0.0-0.7); EOS % 1.6 % (1.5-5.0); GRAN # 4.79 (1.4-6.5); GRAN % 75.3 % (50.0-68.0); HEMATOCRIT 27.1 % (42.0-52.0); LYMPH # 0.7 (1.2-3.4); LYMPH % 11.7 % (22.0-35.0); MEAN CELL VOLUME 85.8 fL (80.0-105.0); MEAN CORPUSCULAR HEMOGLOBIN 30.1 pg (25.0-35.0); MEAN CORPUSCULAR HGB CONC 35.1 g/dl (31.0-37.0); MEAN PLATELET VOLUME 10.5 fl (7.0-11.0); MONO # 0.7 (0.1-0.6); MONO % 11.2 % (1.0-6.0); PLATELET COUNT 64 10^3/uL (120.0-450.0); RED CELL DISTRIBUTION WIDTH 13.2 % (11.5-14.5); WHITE BLOOD COUNT 6.4 10^3/ul (4.5-11.0)
--- NOTE | 2016-10-24 07:53 | CON ---
DATE: 10/23/2016 This patient was seen and evaluated earlier. REASON FOR CONSULTATION: Anemia, drop in hemoglobin, rule out gastrointestinal source of blood loss. HISTORY OF PRESENT ILLNESS: This is a 51-year-old patient with a past medical history of bipolar dis order, history of syncopal episodes, multiple falls, admitted with another fall. The patient has sheeba tained a right humerus fracture and he has been on support sling. The patient's hemoglobin initially when he came into the ER was 12.5. It dropped to 8.9, then slowly to 8.4, then 8.1. There appears to be slow drop in blood count. GI consult was requested to evaluate this. No melena. No vomiting blood. No abdominal pain. The patient never had an endoscopy or colonoscopy. PAST MEDICAL HISTORY: Significant as above, history of diabetes mellitus. SOCIAL HISTORY: Denies smoking or alcohol. REVIEW OF SYSTEMS: Positive as above. All other systems reviewed and negative. PHYSICAL EXAMINATION: GENERAL: The patient is lying on the bed, not in acute distress. VITAL SIGNS: Pulse 110 per minute, temperature 98.3, blood pressure 124/77, respirations 18. HEENT: Atraumatic, anicteric. NECK: Supple. HEART: S1, S2 heard. LUNGS: Bilateral air entry present. ABDOMEN: Soft. There is no tenderness. EXTREMITIES: No edema, no cyanosis. He has right humerus fracture, has a support sling. LABORATORY DATA: Hemoglobin was 8.1, hematocrit is 22.7, WBC 6.9, platelets 60,000. PT, PTT is norm al. Repeated troponin level initially 0.1, now has come to 0.5. Then, he has elevated numbers. IMPRESSION: This is a 51-year-old patient with a history of syncope episode, now admitted again with another syncopal episode, history of fall and sustained a right humeral fracture. The patient has s lowly had drop in blood count. The concern is because of the drop in blood count, but patient has no obvious gastrointestinal bleeding. No melena, no vomiting blood. We will continue to closely follo w up his care and suggest further management. Close followup of the hemoglobin and hematocrit. The patient has mildly elevated troponin level. The patient did receive a dose of Lovenox, presently dis continued. RECOMMENDATIONS: Followup of the CAT scan, which showed a calculus in the right pelvis area. Would recommend followup of the hemoglobin. The concern is in view of the history of fall and drop in bloo d count, we need to rule out any splenic injury or retroperitoneal bleeding. Requested for a CT of t he abdomen and pelvis. This was subsequently reviewed. It shows a renal calculus and also ureteric calculus. No obvious retroperitoneal bleed. Would recommend urological evaluation for stones. Continue the cardiology followup and stool for occult blood. Thank you very much for allowing us to participate in the care of this patient. We will continue to closely follow up his care and suggest further in the care of the patient. Jai Milner MD cc: [id number] TT: 10/24/2016 07:52:39 Confirmation # [id number] Dictation # [id number] en
[2016-10-24 08:09] LABS: ALB/GLOB RATIO 1.1 (1.1-1.8); ALKALINE PHOSPHATASE 52 U/L (38-133); ALT/SGPT 26 U/L (7-56); AST/SGOT 20 U/L (15-59); BLOOD UREA NITROGEN 23 mg/dL (7-21); CALCIUM 8.4 mg/dL (8.4-10.5); CARBON DIOXIDE 25 mmol/L (21-33); CHLORIDE 101 mmol/L (95-110); CHOLESTEROL 85 mg/dL (130-200); GFR AFRICAN-AMERICAN > 60; GLUCOSE,RANDOM 111 mg/dL (70-110); MAGNESIUM 1.5 mg/dL (1.7-2.2); PHOSPHOROUS 2.6 mg/dL (2.5-4.5); POTASSIUM 4.1 mmol/L (3.6-5.0); SODIUM 135 mmol/L (132-148); TOTAL PROTEIN 6.4 g/dL (5.8-8.3)
[2016-10-24 08:37] LABS: IRON 90 ug/dL (45-180)
[2016-10-24 08:49] LABS: TROPONIN I 0.54 ng/mL
[2016-10-24] MEDS ORDERED: Gadodiamide 287 MG/ML VIAL (20ML) IV ONE (10:01)
[2016-10-24] MEDS ORDERED: Magnesium Sulfate 2 GM in Sodium Chloride 0.9% 100 ML IVPB ONE (10:55)
--- NOTE | 2016-10-24 12:47 | PN ---
DATE: 10/24/2016 Seen and examined at the bedside earlier this morning. He just returned from an MRI of the brain. T he patient denies any nausea, vomiting, or abdominal pain. No reports of any overt GI bleed. VITAL SIGNS: Temperature is 98.7, blood pressure is 139/94, pulse rate is 109, respirations 20, 96 o n room air. LABORATORY DATA: Today, WBC is 6.4, H and H is 9.5 and 27.1, platelets are 64. Sodium 135, K 4.1, B UN 22, creatinine is 1.3. Mag level is 1.5, total bilirubin is 2.0, AST 20, ALT 26, alkaline phospha tase is 52. Troponin today is 0.54. Vitamin B12, folate and ferritin is pending. PHYSICAL EXAMINATION: HEENT: Sclerae are anicteric. NECK: Supple. CARDIAC: S1, S2. LUNGS: Decreased breath sounds but good air entry, no rales or wheeze. ABDOMEN: With bowel sounds, soft, nondistended, nontender on palpation. No organomegaly. EXTREMITIES: The patient has right humerus fracture and his right arm is in a sling. ASSESSMENT: This is a 51-year-old male status post syncopal episode, status post fall with right hum eral fracture. The patient is noted to have slow drop in hemoglobin with no obvious gastrointestinal bleed. The patient also with elevated troponins. He did receive a dose of Lovenox and Plavix, whic h is currently discontinued. The patient had a CT scan of abdomen and pelvis which was negative for any splenic injury or retroperitoneal bleeding. It was positive for a renal and ureteric calculus. PLAN: Followup B12, folate and ferritin studies. Pending stool for occult blood. Follow up MRI of the brain. Put patient on gastrointestinal prophylaxis. The patient was seen and case discussed irvin Milner. Jewell MOMIN cc: [id number] TT: 10/24/2016 12:46:47 Confirmation # [id number] Dictation # [id number] georgi
--- NOTE | 2016-10-24 13:04 | MRI ---
PROCEDURE: MRI BRAIN WITH AND WITHOUT CONTRAST HISTORY: Syncope COMPARISON: Noncontrast head CT from 10/22/2016 TECHNIQUE: Multiplanar, multisequence MR images of the brain were obtained with and without intravenous contrast enhancement. 20 cc Omniscan injected intravenously. FINDINGS: HEMORRHAGE: None DWI: No evidence of an acute or early subacute infarction. BRAIN PARENCHYMA: There are tiny scattered T2/FLAIR hyperintense foci in bifrontal subcortical white matter. There is no mass, mass effect or abnormal extra-axial fluid collection. The midline sagittal structures are normal. ENHANCEMENT: No abnormal parenchymal or leptomeningeal enhancement. VENTRICLES: There is moderate global parenchymal volume loss and proportionate enlargement of the ventricles and cortical sulci, advanced for the patient's age. CRANIUM: There is normal bone marrow signal pattern. ORBITS: Grossly unremarkable. PARANASAL SINUSES/MASTOIDS: There is chronic right maxillary sinusitis. The remaining included paranasal sinuses are predominantly clear. There are small mastoid effusions, worse on the right. VASCULAR SYSTEM: There are normal signal voids in the larger intracranial arteries. OTHER FINDINGS: None . IMPRESSION: 1. No acute intracranial abnormality. 2. Minimal bifrontal subcortical white matter changes are strictly nonspecific and could be related to migraine headache effect, gliosis, early chronic microangiopathic changes amongst others. 3. Moderate global parenchymal volume loss, advanced for the patient's age with
--- NOTE | 2016-10-24 16:32 | PN ---
DATE: 10/24/2016 REASON FOR CONSULTATION AND FOLLOWUP: Positive troponin, syncope, postural hypotension, orthostatic, dropping H and H, rule out gastrointestinal bleed. BRIEF CLINICAL HISTORY: This is a 51-year-old male with past medical history significant for bipolar disorder, came to the Emergency Room after having a syncopal episode, sustained fracture of the righ t humeral bone. In post-hospitalization, troponin was negative, second troponin was positive, so rep eat H and H was ordered as well as troponin. Repeat H and H dropped significantly from 12 to 3, so f urther repeated and continues to drop and so last night, the patient got 2 units of packed RBC. The patient is with orthostatic hypotension, dropped the blood pressure on standing from 129 to 90. The patient was given IV fluid. Initially, plan was to do cardiac catheterization before the H and H avinash p, but since the H and H is dropping, cardiac catheterization was on hold. The patient had a stress test. 02/05/2016 that shows normal myocardial perfusion study, normal gated wall motion, ejection fr action 80%. The patient's echocardiography 01/19/2016 that shows an ejection fraction %, trace to mild mitral regurgitation, mild tricuspid regurgitation, no evidence of IHSS dated 01/19/2016. PHYSICAL EXAMINATION: VITAL SIGNS: Temperature afebrile, heart rate 104, blood pressure 123/68. HEENT: PERRLA. Extraocular muscles intact. NECK: Supple. No carotid bruits. No thyromegaly. CHEST: Clear to auscultation. HEART: S1, S2 regular. ABDOMEN: Soft. EXTREMITIES: Clubbing and cyanosis negative. LABORATORY DATA: Blood workup as follows: WBC 6.4, hemoglobin 9.5, hematocrit 27.1, platelet count 64. Chemistry shows sodium 135, potassium 4.0, chloride 101, carbon dioxide 25, gap of 13, BUN 23, c reatinine 1.3. IMPRESSION: The first troponin 0.76, second troponin 0.9, possibly secondary to drop in H and H mayb e underlying coronary artery disease versus a real [id number] myocardial infarction. Doubt it is a real TN. The patient had a stress test in January that was negative. Echo was also negative. Repea t echo was done yesterday that showed ejection fraction normal. Normal mitral valve reported, normal tricuspid valve noted. RV systolic pressure 32, read by Dr. Hernandez. Orthostatic hypotension, GI blood loss, a drop in hemoglobin and hematocrit, near syncope, sustained right humeral fracture afte r a fall. RECOMMENDATION: Continue orthostatic hypotension, continue GI workup because the patient has droppin g H and H, borderline troponin, if positive, which could be secondary to severe anemia, and patient s gemma has a fall, also elevated CPK because of the fall. We will repeat CPK, troponin in the morning. The patient is asymptomatic. Will not proceed for any invasive cardiac procedure because of the pa gustavo's drop in hemoglobin and hematocrit and asymptomatic. Echo also normal. Suggest to continue t o monitor H and H, GI workup. Further recommendations after the GI workup is completed. We will fol low with you, but will definitely do the orthostatic hypotension and continue IV fluid until the terra ent becomes euvolemic. Thank you, Dr. Lopez, for providing the opportunity in taking care of the patient. Gideon Zamudio MD cc: [id number] TT: 10/24/2016 16:31:42 Confirmation # [id number] Dictation # [id number] an
[2016-10-24 17:30] LABS: FOLATE 6.6 ng/mL
--- NOTE | 2016-10-24 19:16 | PN ---
DATE: 10/24/2016 A 51-year-old white male with history of schizophrenia and severe depression. The patient was admitt ed to the hospital after multiple syncopal episodes, 5 occurring in one da; fracturing his right uppe r shoulder, comminuted shoulder fracture. Admitted to the hospital also with thrombocytopenia and mi ld anemia. The patient had been seen in consultation with Dr. Zamudio for cardiology, Dr. Cameron because of his anemia and thrombocytopenia and also by Dr. Beckford. Also has history of diabetes mellitus, p oorly controlled, but on minimal medications. The patient was found to most likely have orthostatic hypotension or autonomic dysfunction or secondary to his antipsychotic medication, Invega. The patie nt was taken off Invega. His hemoglobin has risen from as low as 8.1 to 9.5. His platelet count has stayed in approximately 64,000 range. His brain MRI showed some microvascular disease, but no acute infarcts or masses. PHYSICAL EXAMINATION: The patient is awake and alert and oriented x 3. Does have a swollen right up per extremity in the shoulder, consistent with his comminuted fracture. He was seen by Dr. Terrell perla. He is a nonsurgical patient at this time. LABORATORY DATA: He did have some elevated troponins, indeterminate. He also has had elevated blood sugars; however, controlled at 127 today. His magnesium was 1.5. His iron was normal. His TIBC wa s low. This is consistent with anemia of chronic disease. B12 and folic acid levels and thyroid lev els were fine. At this point, the patient has also had an abdominal pelvic CT, which was within norm al limits and did have an echo which did not show any severe ____ disease and a normal carotid Dopple r examination. PLAN: Start physical therapy and occupational therapy. Wean patient off his Invega. Possibly use F lorinef or midodrine to control his orthostatic hypotension and arrange for an outpatient tilt table test. Pratik Lopez MD cc: [id number] TT: 10/24/2016 19:15:40 Confirmation # [id number] Dictation # [id number] sn
--- NOTE | 2016-10-24 20:02 | CON ---
DATE: 10/24/2016 HISTORY OF PRESENT ILLNESS: Shortly, the patient is a 51-year-old male with reported histo ry of bipolar disorder. The patient was admitted on the medical floor for evaluation of syncopal epi sode. Psych consult was called because the patient has history of mental illness and psychotropic me dication and rule out that psychotropic medication could cause patient falling. The patient was seen and examined today. The patient presented to have acceptable personal hygiene, but seems to be care less about his appearance. Suero hair uncombed, also a joseph. The patient was alert, seems to be dis engaged into the conversation. The patient said that he has long history of bipolar disorder. He duckworth s 2 previous psychiatric admissions. Most recent was 10 years ago. The patient reported that he has outpatient psychiatrist, at [facility]. He sees his psychiatrist every 2 months. The patient also reported that he is on psychotropic medications. He is on Invega Sustenna injectable form every month. Most recent injection was 2 weeks ago. Next injection in 2 weeks. The patient reported that he sees a psychiatrist every 2 months. The patient reported that he was doing well recently. Denied being depressed. The patient denied thoughts of harming himself or others, d enied feeling anxious, denied hearing voices, denied seeing things. The patient reported being compl iant with medications and followup appointments. Denied any side effects. The patient reported that he started on Invega Sustenna 2 years ago and history of falls started about a year ago. It is high ly unlikely that the patient will have falls on Invega Sustenna injectable form. Besides that, the p atient's vital signs are stable, but patient is mildly tachycardic, temperature 98.2, blood pressure 123/68, pulse is 104, blood pressure 115/69, respirations 20, oxygen saturation is 96. MEDICATIONS: Reviewed. The patient is on Pepcid, magnesium oxide, metformin, Glucophage and sodium chloride. LABORATORY DATA: Reviewed. The patient's hemoglobin is 9.5, hematocrit 27.1, granulocytes are 479. There are no signs of granulocytosis. Labs reviewed as well as reports reviewed. Brain MRI showed moderate global parenchymal volume loss, advanced for the patient's age. No acute cranial abnormalit ies. Hematology/oncology is on board. As per hematology/oncology, patient has anemia, thrombocytope fahad. They are ruling out immune thrombocytopenia and platelet antibody was ordered. MENTAL STATUS EXAMINATION: The patient presented to be alert, intermittent eye contact. Speech was low volume, underproductive. Mood described, "I was doing fairly fine." Affect was constricted, but reactive, mood congruent. Thought process coherent and goal directed. Thought content: The patien t denied visual, auditory, or tactile hallucinations. Denied paranoid ideation. The patient denied thoughts of harming himself or others, denied intent or plan. The patient does not appear to be psyc hotic or internally preoccupied. Insight and judgment are fair. Impulses are well controlled. IMPRESSION: Risk of falls. The patient has long history of bipolar disorder, but seems to be in rem ission. The patient is on Invega Sustenna as outpatient psychiatrist. From the medical perspective, patient has history of falls, multiple medical issues. The patient reported that he fell because his legs we re giving out. The patient also has anemia and obesity. The patient also has history of falls and s yncopal episode, diabetes. PLAN: Continue current management. There are no signs of granulocytosis. The patient tolerated Inv ega Sustenna very well. Last injection was 2 weeks ago. The patient was started on Invega Sustenna 2 years ago, doing well on that medication. The patient has a followup appointment with his [facility] psychiatrist. He is seeing him every 2 months. The patient is followed up at [facility]. There are no signs of agitation, aggression, no signs of depression, no signs of psychosis. The patient is doing well. Seems to be in remission. Continue Invega Sustenna as it is. The patient is on Invega for the past 2 years. The patient start ed to fall about a year ago. This is highly unlikely that Invega could give risk of falls. In regar ds of granulocytosis, there are no signs of it. Thank you very much for allowing me to participate in the care of your patient. Denise Rubio MD cc: [id number] TT: 10/24/2016 20:01:56 Confirmation # [id number] Dictation # [id number] rn
--- NOTE | 2016-10-25 00:44 | PN ---
DATE: 10/24/2016 SUBJECTIVE: He was admitted with syncope and right humerus fracture. His hemoglobin declined to 8 g/dL He also has thrombocytopenia with platelet count of 64,000. He received 2 units of blood transfusion for symptomatic anemia. He also developed NSTEMI with elevated cardiac enzymes. Denies any chest pain. Hemoglobin and hematocrit is stable now. Platelet count is 64,000, stable. He also had elevated bilirubin. Liver enzymes were not elevated. Iron studies are within normal limits. B12, folic acid level and TSH levels are within normal limits. Serum protein electrophoresis and immunofixation is pending. He also has history of bipolar disorder, has flat affect, was evaluated by Dr. Walker today. He is having orthostatic hypotension with systolic blood pressure declining into ED while he stands up. Cardiology following. REVIEW OF SYSTEMS: As per HPI. Rest of 12-point review of systems reviewed and negative. PHYSICAL EXAMINATION: GENERAL: Comfortable in bed, in no acute distress, obese. VITAL SIGNS: Temperature 98.8, heart rate is 86 per minute, blood pressure 100/ 50, pulse ox is 99% on room air. HEENT: Head atraumatic, normocephalic. Oral mucosa moist. Pupils equally reacting to light. NECK: No lymphadenopathy. CHEST: Air entry present, equal bilateral. No added sound. CARDIOVASCULAR: S1, S2 normal. No murmur, no gallop. ABDOMEN: Obese, nontender, soft, no hepatosplenomegaly. EXTREMITIES: No edema. SKIN: No petechia, no rash. PSYCH: Flat affect. CENTRAL NERVOUS SYSTEM: Alert, oriented x 3. No focal sensorimotor deficit. LABORATORY DATA: White count 6.4, hemoglobin 9.5, hematocrit 27.1, platelet count 64, glucose 127. Iron 90, percentage saturation 44. B12 242, folic acid 6.6. Troponin 0.54, creatinine 1.3. Electrolytes normal. MEDICATIONS: Metformin 850 b.i.d., sodium chloride 100 mL an hour, Pepcid 20 mg p.o. b.i.d., mag oxide 400 daily. ASSESSMENT: 1. Anemia. 2. Thrombocytopenia. 3. Splenomegaly. 4. Orthostatic hypotension. 5. Non-ST elevation myocardial infarction. 6. Bipolar disorder. 7. Syncope. 8. Diabetes mellitus type 2. PLAN: 1. Hematology. He has anemia, thrombocytopenia. Leukocytosis is resolved. Workup for anemia showed normal iron studies, normal B12, folate. Peripheral smear reviewed. No signs of hemolysis. LDH is not elevated. Haptoglobin is pending. SPEP immunofixation is pending. Differential diagnosis for anemia, thrombocytopenia include marrow infiltration with malignant cells, possibility of Non-Hodgkins lymphoma. He also has splenomegaly. Other differential list myelodysplastic syndrome. Hepatitis and HIV serology ordered to be drawn with a.m. labs. Both can cause anemia, thrombocytopenia due to advanced disease. Entire medical record on [facility] reviewed. He never had HIV and hepatitis serology done in past few years. 2. Syncope. He is still orthostatic, cardiology following. Hemoglobin is stable now at 9.1. We will continue to monitor CBC closely. 3. Diabetes mellitus. Blood sugar controlled on current medications. 4. Bipolar disorder; evaluated by Dr. Walker today. Thank you, Dr. Lopez, for allowing us to participate in his care. We will continue to follow. Frannie Cameron MD cc: [id number] TT: 10/25/2016 00:44:23 Confirmation # [id number] Dictation # [id number] adi PEARL
[2016-10-25 03:40] LABS: TOTAL PROTEIN, SERUM 5.9 g/dL (6.1-8.1)
[2016-10-25 07:28] LABS: ADD MANUAL DIFF? NO
[2016-10-25 07:34] LABS: BASO # 0.01 K/mm3 (0.0-2.0); BASO % 0.2 % (0.0-3.0); EOS # 0.2 (0.0-0.7); EOS % 4.2 % (1.5-5.0); GRAN # 4.05 (1.4-6.5); GRAN % 70.8 % (50.0-68.0); LYMPH # 0.9 (1.2-3.4); LYMPH % 15.9 % (22.0-35.0); MEAN CELL VOLUME 85.7 fL (80.0-105.0); MEAN CORPUSCULAR HEMOGLOBIN 30.4 pg (25.0-35.0); MEAN CORPUSCULAR HGB CONC 35.5 g/dl (31.0-37.0); MEAN PLATELET VOLUME 10.2 fl (7.0-11.0); MONO # 0.5 (0.1-0.6); MONO % 8.9 % (1.0-6.0); PLATELET COUNT 61 10^3/uL (120.0-450.0); RED CELL DISTRIBUTION WIDTH 13.6 % (11.5-14.5); WHITE BLOOD COUNT 5.7 10^3/ul (4.5-11.0)
[2016-10-25 07:58] LABS: ALKALINE PHOSPHATASE 46 U/L (38-133); ALT/SGPT 30 U/L (7-56); AST/SGOT 16 U/L (15-59); BILIRUBIN,TOTAL 1.3 mg/dL (0.2-1.3); BLOOD UREA NITROGEN 17 mg/dL (7-21); CALCIUM 8.2 mg/dL (8.4-10.5); CARBON DIOXIDE 25 mmol/L (21-33); CHLORIDE 103 mmol/L (98-107); GFR AFRICAN-AMERICAN > 60; GLUCOSE,RANDOM 102 mg/dL (70-110); HEMATOCRIT 23.4 % (42.0-52.0); MAGNESIUM 1.7 mg/dL (1.7-2.2); PHOSPHOROUS 2.2 mg/dL (2.5-4.5); POTASSIUM 4.1 mmol/L (3.6-5.0); SODIUM 134 mmol/L (132-148); TOTAL PROTEIN 6.1 g/dL (5.8-8.3)
[2016-10-25 08:00] LABS: TROPONIN I 0.35 ng/mL
[2016-10-25] MEDS ORDERED: Lidocaine 1% Inj (20ml) IJ ONE ×2 (09:00→20:00)
--- NOTE | 2016-10-25 09:41 | PN ---
DATE: 10/25/2016 A 51-year-old male in room 270, bed 1. He had been admitted with a right proximal humerus fracture o n 10/22/2016. He is still in the collar and cuff. I explained to him the merits of no surgery and to stay in the sling until the callus consolidates in about 4-6 weeks. In the meantime, he is not to p ut weight on this shoulder and not to move the shoulder and to stay in a collar and a cuff. I will b e glad to follow him in the office or wherever he goes post discharge from the hospital and we will t ry to get an x-ray before he leaves of that right shoulder. David Kerns DO cc: [id number] TT: 10/25/2016 09:41:02 Confirmation # [id number] Dictation # [id number] en
[2016-10-25] MEDS: Magnesium Oxide 400 mg Tab UD PO SCH (09:58)
--- NOTE | 2016-10-25 10:46 | PN ---
DATE: 10/25/2016 Seen and examined at the bedside earlier today. No reports of any acute overnight events. The patie nt denies any nausea, vomiting, abdominal pain. No reports of any overt GI bleed. VITAL SIGNS: Temperature is 98.6, blood pressure is 138/74, pulse 95, respirations 18, 97% on room a ir. LABORATORIES: Today, WBC is 5.7, H and H is 8.3 and 23.4, platelets of 61. Chem: Sodium is 134, po tassium 4.1, BUN is 17, creatinine is 1.1. Magnesium is 1.7. The troponin is decreased to 0.35. LF Ts are within normal limits. The patient had a brain MRI yesterday and that did not report any acute abnormalities. PHYSICAL EXAMINATION: HEENT: Sclerae anicteric. NECK: Supple. CARDIAC: S1, S2. LUNG SOUNDS: With decreased breath sounds, but good aeration. ABDOMEN: With bowel sounds, soft, nontender, no organomegaly. EXTREMITIES: Right upper extremity is swollen and is in a sling. ASSESSMENT: This is a 51-year-old male, came in to hospital with syncopal episodes and with a right upper shoulder fracture, noted to have anemia and thrombocytopenia. This patient has a history of sc hizophrenia and depression and also with elevated troponins and was started on Lovenox and Plavix, wh ich have now been discontinued due to drop in hemoglobin. CT scan of abdomen and pelvis done, which was negative for any retroperitoneal bleeding or splenic injury. PLAN: The patient may benefit from GI workup when optimal. He is being followed by hematology as we ll as cardiology. Will continue to monitor for any overt gastrointestinal bleed. He is on gastroint estinal prophylaxis of Pepcid. Still pending stool for occult blood. As per cardiology, hematology and neurology. The patient was seen and case discussed with Dr. Milner. Jewell MOMIN cc: [id number] TT: 10/25/2016 10:44:44 Confirmation # [id number] Dictation # [id number] en
[2016-10-25 12:10] LABS: BETA 1 GLOBULIN 0.4 g/dL (0.4-0.6); BETA 2 GLOBULIN 0.4 g/dL (0.2-0.5); GAMMA GLOBULIN 1.1 g/dL (0.8-1.7)
--- NOTE | 2016-10-25 14:19 | US ---
Indication: Hematuria Bladder only/residual urine ultrasound Findings: Prevoid urinary bladder measures approximately 8.6 x 10.0 x 8.0 cm, calculated volume 498.8 mL. Postvoid urinary bladder measures approximately 6.1 x 5.3 x 4.0 cm, calculated volume 89 mL. Prostate gland measures approximately 3.3 x 4.8 x 2.7 cm, volume 22.1 mL. The left ureteral jet is identified. The right ureteral jet is not seen. No urinary bladder calculus evident. The urinary bladder wall does not appear thickened. Impression: Prevoid urinary bladder volume 498.8 mL. Postvoid urinary bladder volume 89 mL. Prostate gland volume 22.1 mL, borderline enlarged. Recommend correlation with PSA. The left ureteral jet is identified. The right ureteral jet is not seen.
--- NOTE | 2016-10-25 15:15 | PN ---
DATE: 10/25/2016 The patient is a 51-year-old, seen and examined, lying in bed. According to therapist, he was dizzy when he was evaluated last time. Because of that, he did not participate in therapy. Offers no comp laints, has flat affect. Had discussion with nurse, . PHYSICAL EXAMINATION: VITAL SIGNS: The patient is afebrile, pulse 96, respirations 20, blood pressure 115/66 and standing is 78/53. LUNGS: Bilateral fair airflow, no rhonchi or crackle. HEART: S1, S2 audible. ABDOMEN: Soft, obese, nontender, no rebound, no guarding. NEUROLOGIC: He is awake and alert, able to communicate. EXTREMITIES: Bilateral legs, no edema. LABORATORY EXAMINATION: WBCs 5.7, hemoglobin 8.3, hematocrit 23.4, platelets 61. Chemistry: Sodium 134, potassium 4.1, chloride 103, CO2 25, BUN 17, creatinine 1.1, blood sugar of 105. Troponin 0.35 . Urine cultures are negative. He had MRI of the brain done that showed no acute intracranial abnor mality. ASSESSMENT: 1. History of depression and schizophrenia. 2. Multiple falls, sustaining right shoulder fracture. 3. Postural hypotension. 4. Thrombocytopenia. 5. Anemia. 6. Non-ST elevation myocardial infarction. 7. [id number] diabetes. PLAN: Currently, patient is on magnesium. He is on famotidine. He is getting IV fluids. He is get ting metformin and I will order for midodrine and order for bilateral ANDREINA stockings and see the respo nse. Probably, he is feeling dizzy because of postural hypotension. Primo Draper MD cc: [id number] TT: 10/25/2016 15:14:58 Confirmation # [id number] Dictation # [id number] en
[2016-10-25] MEDS: Insulin Lispro (humaLOG) MEDIUM Coverage SC SCH ×2 (17:59→22:22)
--- NOTE | 2016-10-25 20:06 | PN ---
DATE: 10/25/2016 REASON FOR CONSULTATION AND FOLLOWUP: Syncope, postural hypotension, orthostatic positive dropping H and H, rule out gastrointestinal bleed, positive troponin. BRIEF CLINICAL HISTORY: A 51-year-old male with past medical history significant for bipolar disorde r, who came to the Emergency Room after having a syncopal episode, sustained fracture of right [place]and[place] l fracture. In the hospitalization, the patient had a positive troponin, first troponin was negative , second troponin was positive. H and H dropped from 12 to 8 g. He is status post 2 units of packed RBCs was given. Initial troponin positive, the patient scheduled for cardiac catheterization. [facility] e the patient's drop in H and H, it was on hold and needs a GI workup. The patient has still orthost atic hypotension. requested not done, again is done today and found to have significant orthostasis. PHYSICAL EXAMINATION: VITAL SIGNS: Temperature afebrile, heart rate 96, blood pressure 115/66, on lying 115/66, sitting 11 4/58, and standing 72/53. The patient's major complaint is that the patient feels dizzy and standing . HEENT: PERRLA. Extraocular muscles intact. NECK: Supple. No carotid bruits. No thyromegaly. CHEST: Clear to auscultation. HEART: S1, S2 regular. ABDOMEN: Soft. EXTREMITIES: Clubbing and cyanosis negative. LABORATORY DATA: WBC 5.8, hemoglobin 8.8, hematocrit 23.4, platelet count 61. Chemistry shows sodiu m 130, potassium 4.1, chloride 103, bicarbonate 25, anion gap of 10, BUN 17, creatinine 1.1. Troponi n 0.35, trending down. IMPRESSION: Severe anemia, status post 2 packed RBC transfusion, still the patient dropped to hemogl obin 8, baseline was 12. Rule out gastrointestinal bleed, orthostatic hypotension. Positive troponi n secondary to severe anemia as well as underlying coronary artery disease versus true coronary arter y disease. Even though patient has a very minimal troponin, she was not a candidate for catheterizat ion because patient is dropping hemoglobin and hematocrit without any anticoagulation. Should the pa tient go for catheterization and angioplasty if needed he cannot tolerate dual antiplatelet therapy, because of severe drop in H and H and anemia. First, patient needs to be worked up for anemia. Also , patient needs orthostatic hypotension to be corrected. Once the patient is stable and the H and H remains stable, and no sign of active bleeding; consider cardiac catheterization, but now it would be at a later date. I discussed with Kristy, our nurse practitioner. Continue IV fluid and midodrine. Will started imipramine and will follow up the orthostatics. We will follow with you. Thank you, Dr. Draper, for providing the opportunity in taking care of Ari Santiago. We will fol low with you. We will repeat the troponin in the morning. Gideon Zamudio MD cc: [id number] TT: 10/25/2016 20:05:40 Confirmation # [id number] Dictation # [id number] ln
--- NOTE | 2016-10-26 08:13 | PN ---
DATE: 10/25/2016 This is an addendum to the GI progress report dictated by Jewell Buchanan. The patient was seen and evaluated earlier. No complaints of abdominal pain. On examination, abdome n soft. There is no tenderness. Hemoglobin 8.3. The patient is anemic, status post 2 unit transfus ion. The patient was on Plavix and Lovenox, both on hold. In view of the significant drop in blood count, there is no obvious source of bleeding noticed. The CT showed no retroperitoneal bleeding or ____. The patient has a left renal calculus. PLAN The patient received 2 units ____. The plan is to follow up the hemoglobin and hematocrit. We will consider doing a GI workup. Since the patient needs to be on long-term anticoagulation, the martell sonable thing is to check the stomach and the ____ to consider EGD and also colonoscopy at the same t erich. Thank you very much for allowing us to participate in the care of the patient. The patient is ____. This is an addendum to the GI progress report dictated by Jewell Buchanan. The patient did have a drop in blood count and received 2 units. History of multiple ____ bleeding. CAT scan was done to rule out any retroperitoneal bleeding which was negative except the calculus in the kidney. PHYSICAL EXAMINATION: ABDOMEN: Soft. There is no tenderness. IMPRESSION: 1. Anemia with a significant drop in hemoglobin, status post transfusion. 2. The patient would benefit from the EGD and a colonoscopy. However, we will wait ____ the colonos copy. We will continue to closely follow up his care and suggest further management based on his i nical course. Jai Milner MD cc: [id number] TT: 10/26/2016 08:12:22 Confirmation # [id number] Dictation # [id number] tn
[2016-10-26 08:18] LABS: ADD MANUAL DIFF? NO
[2016-10-26 08:25] LABS: BASO # 0.01 K/mm3 (0.0-2.0); BASO % 0.2 % (0.0-3.0); EOS # 0.3 (0.0-0.7); EOS % 4.8 % (1.5-5.0); GRAN # 3.98 (1.4-6.5); GRAN % 70.4 % (50.0-68.0); LYMPH # 0.9 (1.2-3.4); LYMPH % 15.2 % (22.0-35.0); MEAN CELL VOLUME 87.1 fL (80.0-105.0); MEAN CORPUSCULAR HEMOGLOBIN 30.5 pg (25.0-35.0); MEAN PLATELET VOLUME 10.1 fl (7.0-11.0); MONO # 0.5 (0.1-0.6); MONO % 9.4 % (1.0-6.0); PLATELET COUNT 78 10^3/uL (120.0-450.0); RED CELL DISTRIBUTION WIDTH 13.6 % (11.5-14.5); WHITE BLOOD COUNT 5.7 10^3/ul (4.5-11.0)
[2016-10-26] MEDS: Insulin Lispro (humaLOG) MEDIUM Coverage SC SCH ×4 (08:26→22:00)
[2016-10-26 08:39] LABS: ALKALINE PHOSPHATASE 50 U/L (38-133); ALT/SGPT 26 U/L (7-56); AST/SGOT 19 U/L (15-59); BILIRUBIN,TOTAL 1.6 mg/dL (0.2-1.3); BLOOD UREA NITROGEN 13 mg/dL (7-21); CALCIUM 8.4 mg/dL (8.4-10.5); CARBON DIOXIDE 28 mmol/L (21-33); CHLORIDE 102 mmol/L (98-107); GFR AFRICAN-AMERICAN > 60; GLUCOSE,RANDOM 101 mg/dL (70-110); MAGNESIUM 1.7 mg/dL (1.7-2.2); POTASSIUM 4.3 mmol/L (3.6-5.0); SODIUM 136 mmol/L (132-148); TOTAL PROTEIN 6.5 g/dL (5.8-8.3)
[2016-10-26 09:44] LABS: HEMATOCRIT 23.7 % (42.0-52.0)
[2016-10-26] MEDS: Magnesium Oxide 400 mg Tab UD PO SCH (10:27)
--- NOTE | 2016-10-26 10:51 | CP.PCM.PN ---
Subjective - Date & Time of Evaluation Date of Evaluation: 10/26/16 Time of Evaluation: 11:00 - Subjective Subjective: DATE: 10/26/2016 SUBJECTIVE: He was admitted with syncope and right humerus fracture. His hemoglobin declined to 8.3 gm/dl yesterday from 9.4 gm/dl. He also has thrombocytopenia with platelet count of 64,000. He received 2 units of blood transfusion for symptomatic anemia. He also developed NSTEMI with elevated cardiac enzymes. Denies any chest pain. Platelet count is 64,000, stable. He also had elevated bilirubin. Liver enzymes were not elevated. Iron studies are within normal limits. B12, folic acid level and TSH levels are within normal limits. Serum protein electrophoresis and immunofixation no M protein. He also has history of bipolar disorder, has flat affect, was evaluated by Dr. Walker today. Bone marrow aspiration, biopsy done yesterday to rule out MDS/NHL. Blood counts stable today. Peripheral smear reviewed, showed no signs of hemolysis. Hepatitis, HIV serology negative, REVIEW OF SYSTEMS: As per HPI. Rest of 12-point review of systems reviewed and negative. PHYSICAL EXAMINATION: GENERAL: Comfortable in bed, in no acute distress, obese. VITAL SIGNS: reviewed. HEENT: Head atraumatic, normocephalic. Oral mucosa moist. Pupils equally reacting to light. NECK: No lymphadenopathy. CHEST: Air entry present, equal bilateral. No added sound. CARDIOVASCULAR: S1, S2 normal. No murmur, no gallop. ABDOMEN: Obese, nontender, soft, no hepatosplenomegaly. EXTREMITIES: No edema. SKIN: No petechia, no rash. PSYCH: Flat affect. CENTRAL NERVOUS SYSTEM: Alert, oriented x 3. No focal sensorimotor deficit. bruise on right shoulder stable, LABORATORY DATA: reviewed. MEDICATIONS: reviewed. ASSESSMENT: 1. Anemia. 2. Thrombocytopenia. 3. Splenomegaly. 4. Orthostatic hypotension. 5. Non-ST elevation myocardial infarction. 6. Bipolar disorder. 7. Syncope. 8. Diabetes mellitus type 2. PLAN: 1. Hematology. He has anemia, thrombocytopenia. Leukocytosis is resolved. Workup for anemia showed normal iron studies, normal B12, folate. Peripheral smear reviewed. No signs of hemolysis. LDH is not elevated. Haptoglobin is pending. SPEP immunofixation is negative for M protein. Differential diagnosis for anemia, thrombocytopenia include marrow infiltration with malignant cells, possibility of Non-Hodgkins lymphoma or MDS. Hepatitis and HIV serology negative. Bone marrow aspiration, biopsy done, results pending. Will continue to monitor blood counts. PRBC for Hb less than 8.0. 2. Syncope. He is still orthostatic, cardiology following. Hemoglobindeclined to 8gm/dl. We will continue to monitor CBC closely. 3. Diabetes mellitus. Blood sugar controlled on current medications. 4. Bipolar disorder; followed by Dr. Walker. 5. ID: HIV, Hepatitis serology negative. Thank you, Dr. Lopez, for allowing us to participate in his care. We will continue to follow. Frannie Cameron MD Objective - Vital Signs/Intake and Output Vital Signs (last 24 hours): Temp Pulse Resp BP Pulse Ox 98.2 F 91 H 20 141/79 95 10/26/16 05:32 10/26/16 05:32 10/26/16 05:32 10/26/16 05:32 10/26/16 05:32 Intake and Output: 10/26/16 10/26/16 06:59 18:59 Intake Total 1420 Output Total 500 Balance 920 - Medications Medications: Current Medications Famotidine (Pepcid) 20 mg PO 1000,2200 [facility] Last Admin: 10/26/16 10:27 Dose: 20 mg Sodium Chloride (Sodium Chloride 0.9%) 1,000 mls @ 100 mls/hr IV .Q10H [facility] Last Admin: 10/24/16 17:53 Dose: 100 mls/hr Insulin Human Lispro (Humalog Med) 0 units SC ACHS [facility] PRN Reason: Protocol Last Admin: 10/26/16 08:26 Dose: Not Given Magnesium Oxide (Mag-Ox) 400 mg PO DAILY [facility] Last Admin: 10/26/16 10:27 Dose: 400 mg Metformin HCl (Glucophage) 850 mg PO BID [facility] Last Admin: 10/26/16 10:27 Dose: 850 mg Midodrine (Proamatine) 2.5 mg PO TID [facility] Last Admin: 10/26/16 10:27 Dose: 2.5 mg - Labs Labs: 10/26/16 08:17 10/26/16 08:17 PT 11.2 Seconds (9.9-11.8) 10/22/16 08:44 INR 1.04 (0.93-1.08) 10/22/16 08:44 APTT 26.1 Seconds (23.7-30.8) 10/22/16 08:44
--- NOTE | 2016-10-26 11:03 | PN ---
DATE: 10/25/2016 SUBJECTIVE: He is comfortable in bed, in no acute distress. Hemoglobin declined to 8.3. Yesterday it was 9.5 g/dL. Platelet count is stable at 61,000. No bleeding. He had syncope and had right javier ulder fracture. Bruises on the right shoulder are stable. No increase in bruise on the right should er. UA showed large blood. Bladder ultrasound was ordered that showed no mass lesion in the bladder . He denies any chest pain. No shortness of breath. He had elevated cardiac enzymes which are decl ining now. He has history of bipolar disorder, has flat affect. Able to answer all questions withou t any problem. REVIEW OF SYSTEMS: As per HPI. Rest of 12-point review of systems reviewed and negative. PHYSICAL EXAMINATION: GENERAL: Comfortable in bed, in no acute distress. Affect flat. VITAL SIGNS: Temperature 98.7, heart rate is 88 per minute, blood pressure 90/70, pulse ox is 98% ro om air. HEENT: Normal. NECK: No lymphadenopathy. CHEST: Air entry present, equal bilateral. No added sound. CARDIOVASCULAR: S1, S2 normal. No murmur, no gallop. ABDOMEN: Obese, nontender, no hepatosplenomegaly. No rebound tenderness. EXTREMITIES: No edema. SKIN: No petechia, no rash. Right arm has a big bruise around the shoulder, same, no increase. PSYCHOLOGIC: Flat affect. NEUROLOGIC: Alert, oriented x 3, no focal sensorimotor deficit. LABORATORY DATA: White count 5.7, hemoglobin 8.3, hematocrit 23.4, platelet count 61,000, glucose 12 4. Sodium 134, potassium 4.1, creatinine 1.1, calcium 8.2. Troponin 0.35. MEDICATIONS: Pepcid 20 mg b.i.d., insulin as per sliding scale, mag oxide 400 mg daily, metformin 85 0 p.o. b.i.d., midodrine 2.5 mg p.o. t.i.d., IV fluid at 100 mL an hour. ASSESSMENT: 1. Anemia. 2. Thrombocytopenia. 3. Splenomegaly. 4. Orthostatic hypotension. 5. Non-ST elevation myocardial infarction. 6. Bipolar disorder. 7. Syncope. 8. Diabetes mellitus type 2. PLAN: 1. Hematology; anemia, thrombocytopenia. Iron studies are normal. B12, folic acid levels are clara l. SPEP immunofixation did not show any . Hemoglobin declined to 8.3 g/dL. It was 9.4 g/dL y . Peripheral smear reviewed. No signs of hemolysis. with pathologist requested for th e slide. Chemistries did not show any evidence of hemolysis. He had hematuria, mild, which cannot a ccount for 1 gram drop in hemoglobin. I will do bone marrow aspiration biopsy to rule out MDS or mar row infiltration with tumor. There is a possibility of non-Hodgkin's lymphoma with splenomegaly and anemia, thrombocytopenia. 2. ID; HIV and hepatitis serology is ordered. Both are negative. 3. Diabetes mellitus. Sugar controlled on current medication. 4. Syncope. He is still orthostatic, has nonSTEMI. Cardiovascular is stable. Cardiology following . 5. Bipolar disorder, Dr. Walker following. Discussed with the patient for bone marrow aspiration biopsy. He agreed with the plan. We will cont inue to follow. Thank you, Dr. Lopez, for allowing us to participate in the patient's care. Frannie Cameron MD cc: [id number] TT: 10/26/2016 11:02:10 Confirmation # [id number] Dictation # [id number] georgi
--- NOTE | 2016-10-26 11:10 | OP ---
PROCEDURE DATE: 10/25/2016 REASON FOR PROCEDURE: Anemia, thrombocytopenia. PROCEDURE: 1. Bone marrow aspiration. 2. Bone marrow biopsy. DESCRIPTION OF PROCEDURE: Informed consent obtained from the patient. He signed the written consent witnessed by the staff nurse. He was laid in left lateral position. Cleaning and draping was done on the right iliac crest. Under all aseptic conditions, he was given local anesthesia with 1% lidoca ine. Bone marrow aspirate samples were obtained with Jamshidi needle. Ten slides made at the [facility]. Four tubes sent for flow cytometry, cytogenetics and more molecular studies. Bone marrow biopsy specimen obtained with a separate bone marrow puncture site with Jamshidi needle. Around 1 cm of bon e marrow biopsy sample obtained, sent for pathology review. There were no complications of bleeding and pain. Vitals stable post procedure. All the specimen handed over to [employer] wiring inspector. Requested stat flow cytometry. Tylenol p.r.n. for pain. A sterile dressing done on the small needle puncture site on the right iliac crest. The patient comfortable post-procedure. Vitals stable. Frannie Cameron MD cc: [id number] TT: 10/26/2016 11:09:44 la
--- NOTE | 2016-10-26 11:35 | PN ---
DATE: 10/26/2016 SUBJECTIVE: The patient is a 51-year-old, seen and examined, lying in bed, seems to be comfortable, not in any acute distress. He is participating in therapy, has been on midodrine. Blood pressure se ems to be improving. No chest pain, no shortness of breath. Otherwise, no significant complaint. PHYSICAL EXAMINATION: VITAL SIGNS: He is afebrile, pulse 91, respirations 20, blood pressure 141/79. LUNGS: Bilateral fair airflow, no rhonchi or crackle. HEART: S1, S2 audible. ABDOMEN: Soft, nontender, no rebound, no guarding. NEUROLOGIC: He is awake and alert, slow to respond. EXTREMITIES: Bilateral legs no edema. LABORATORY EXAMINATION: WBC is 5.7, hemoglobin 8.3, hematocrit 23.7, platelet 278. Chemistry: Sodi um 136, potassium 4.3, chloride 102, CO2 of 28, BUN 13, creatinine 1.0, blood sugar 101. Total bili 1.6. Troponin 0.20. His urinalysis is unremarkable. ASSESSMENT: 1. Syncope because of significant postural hypotension, probably secondary to psychiatric medication . 2. Status post right shoulder fracture. 3. History of depression and schizophrenia. 4. Thrombocytopenia. 5. Anemia. 6. Non-ST elevation myocardial infarction. 7. Deconditioning. PLAN: The patient is currently on IV fluids. His oral intake seems to be decent. I will cut down h is fluids to 50 mL and monitor his blood pressure. If it drops, that can be increased again. Once h is blood pressure is stable, we can discontinue his telemetry and he is going to need subacute rehab. Primo Draper MD cc: [id number] TT: 10/26/2016 11:34:57 Confirmation # [id number] Dictation # [id number] tn
[2016-10-26] MEDS: Sodium Chloride 0.9% 1,000 ML IV SCH (12:35)
--- NOTE | 2016-10-26 14:52 | CARD ---
APPROVED REPORT EKG Measurement Heart [id number] MI [id number] <Conclusion> Normal sinus rhythm Normal ECG
--- NOTE | 2016-10-26 17:44 | PN ---
DATE: 10/26/2016 REASON FOR CONSULTATION: Follow up syncope, possible hypotension, orthostatic blood pressure, drop in H and H, rule out GI bleed and positive troponin. BRIEF CLINICAL HISTORY: A 51-year-old male with past medical history significant for bipolar disorde r who came to the Emergency Room with history of syncopal episodes, right fracture, history of previous syncope, dizziness and orthostatic hypotension. The patient was checked for orthostatic hyp otension with significant drop in orthostatic hypotension. During the course of hospitalization, the patient also dropped H and H from 12 down to 8, status post packed RBC transfusion and now the hemog lobin dropped back again to 8. After transfusion, the patient's hemoglobin went up to 9.5 and now it has dropped to 8.8 and maintaining at 8.8. He denies any chest pain, shortness of breath, any palpi tation, but is still complaining of dizziness. PHYSICAL EXAMINATION: VITAL SIGNS: Temperature afebrile, heart rate 97 and blood pressure 123/70. Yesterday the patient w as still orthostatic. On lying, blood pressure 115, on sitting 114 and on standing it is 78. The pa tient was started on . Temperature afebrile, heart rate 98, blood pressure 130/70. HEENT: PERRLA. Extraocular muscles intact. NECK: Supple. No carotid bruits. No thyromegaly. CHEST: Clear to auscultation. HEART: S1, S2 regular. ABDOMEN: Soft. EXTREMITIES: Clubbing and cyanosis negative. LABORATORY DATA: Blood workup as follows: WBC 5.7, hemoglobin 8.8, hematocrit 23.7 and platelet cou nt 78. Chemistry shows sodium 130, potassium 4.3, chloride 102, carbon dioxide 28, anion gap of 10, BUN 13, creatinine 1.0 and troponin 0.2. IMPRESSION: Positive troponin. It could be secondary to a fall but cannot rule out underlying coron vincent artery disease, but since the patient has drop in hemoglobin and hematocrit and orthostatics not good, I elected to do as well as dropping H and H precludes the use of aspirin and Plavix. Without aspirin and Plavix, the patient is dropping H and H. Needs to rule out GI first and we will continue IV fluid. Will start Florinef 0.1 mg b.i.d. and monitor H and once the GI workup is completed, no site of active bleeding is found ( negative will consider ). Wi ll follow with you. Gideon Zamudio MD cc: [id number] TT: 10/26/2016 17:44:22 Confirmation # [id number] Dictation # [id number] sn
[2016-10-27] MEDS: Sodium Chloride 0.9% 1,000 ML IV SCH ×2 (06:14→21:57)
[2016-10-27 07:44] LABS: ADD MANUAL DIFF? NO
[2016-10-27 07:49] LABS: BASO # 0.01 K/mm3 (0.0-2.0); BASO % 0.2 % (0.0-3.0); EOS # 0.3 (0.0-0.7); EOS % 5.2 % (1.5-5.0); GRAN # 3.85 (1.4-6.5); GRAN % 67.3 % (50.0-68.0); LYMPH # 0.8 (1.2-3.4); LYMPH % 13.3 % (22.0-35.0); MEAN CELL VOLUME 87.6 fL (80.0-105.0); MEAN CORPUSCULAR HEMOGLOBIN 30.3 pg (25.0-35.0); MEAN CORPUSCULAR HGB CONC 34.6 g/dl (31.0-37.0); MEAN PLATELET VOLUME 9.5 fl (7.0-11.0); MONO # 0.8 (0.1-0.6); PLATELET COUNT 86 10^3/uL (120.0-450.0); RED CELL DISTRIBUTION WIDTH 13.7 % (11.5-14.5); WHITE BLOOD COUNT 5.7 10^3/ul (4.5-11.0)
[2016-10-27 08:08] LABS: ALKALINE PHOSPHATASE 54 U/L (38-133); ALT/SGPT 29 U/L (7-56); AST/SGOT 21 U/L (15-59); BLOOD UREA NITROGEN 14 mg/dL (7-21); CALCIUM 8.4 mg/dL (8.4-10.5); CARBON DIOXIDE 28 mmol/L (21-33); CHLORIDE 101 mmol/L (98-107); GFR AFRICAN-AMERICAN > 60; GLUCOSE,RANDOM 112 mg/dL (70-110); MAGNESIUM 1.7 mg/dL (1.7-2.2); PHOSPHOROUS 2.6 mg/dL (2.5-4.5); SODIUM 135 mmol/L (132-148); TOTAL PROTEIN 6.4 g/dL (5.8-8.3)
[2016-10-27 08:13] LABS: TROPONIN I 0.11 ng/mL
[2016-10-27] MEDS: Insulin Lispro (humaLOG) MEDIUM Coverage SC SCH ×4 (08:21→22:00)
--- NOTE | 2016-10-27 09:23 | PN ---
DATE: 10/27/2016 UPDATED REPORT The patient is in room 270, bed 1. The patient was admitted on 10/22/16 with a comminuted fracture, right proximal humerus, being treated with a collar and a cuff, and I will change his collar and cuff today, get one that is more broad thao t does not irritate his neck so much, but he will need to continue wearing a collar and cuff for the right shoulder fracture for at least 4-6 weeks until the fracture unites enough to be without a colla r and a cuff, and he will need to also do is sitting up in bed and sleeping, and no weight on that ri ght shoulder, and we will get periodic x-rays of his right shoulder for position change if any. David Kerns DO cc: [id number] TT: 10/27/2016 09:23:05 Confirmation # [id number] Dictation # [id number] adi
[2016-10-27] MEDS: Magnesium Oxide 400 mg Tab UD PO SCH (10:54)
--- NOTE | 2016-10-27 16:57 | PN ---
DATE: 10/27/2016 REASON FOR CONSULTATION AND FOLLOWUP: Syncope, orthostatic hypotension, drop in hemoglobin and hemat ocrit, gastrointestinal bleed, positive troponin. BRIEF CLINICAL HISTORY: This is a 51-year-old male with a past medical history significant for bipol ar disorder who came to the Emergency Room with a history of a syncopal episode and sustained a fract ure of the right shoulder, history of previous syncope, dizziness and orthostatic hypotension. The p atient was checked multiple times, and is still has orthostatic hypotension. He was started on Selina truman and Midodrine. Repeat orthostatic check, blood pressure is pending, multiple times was requested for orthostatic and was not done. PHYSICAL EXAMINATION: VITAL SIGNS: Temperature afebrile, heart rate 74, blood pressure 136/74. HEENT: PERRLA. Extraocular muscles intact. NECK: Supple. No carotid bruits. No thyromegaly. CHEST: Clear to auscultation. HEART: S1, S2 regular. ABDOMEN: Soft. EXTREMITIES: Clubbing and cyanosis negative. LABORATORY DATA: Blood workup as follows: WBC , hemoglobin 8.3, hematocrit 24, platelet count 86. Chemistry shows sodium 135, potassium 4, chloride 101, carbon dioxide 28, anion gap of 10, BUN 1 4, creatinine 1.0. Troponin 0.01, negative. IMPRESSION: Gastrointestinal bleed, drop in hemoglobin and hematocrit, status post 2 packed red bloo d cell transfusion, history of syncope, history of orthostatic hypotension multiple times and on last admission also orthostatic hypotension. He was started on Florinef and Midodrine. A repeat orthost atic hypotension is pending; multiple times requested and it is not done as of yet. RECOMMENDATION: First if the patient becomes euvolemic, monitor H and H and if it does not drop cont inue with GI workup and if the GI workup is negative for active bleeding, then consider cardiac rich terization versus a stress test. Will not proceed for a stress test or cardiac catheterization until the patient becomes euvolemic and not orthostatic and gastrointestinal bleed is ruled out. Multiple times requested orthostatic hypotension, but not done as of yet. Gideon Zamudio MD cc: [id number] TT: 10/27/2016 16:56:29 Confirmation # [id number] Dictation # [id number] dn
[2016-10-28] MEDS: Sodium Chloride 0.9% 1,000 ML IV SCH (04:10)
--- NOTE | 2016-10-28 05:01 | PN ---
DATE: 10/27/2016 SUBJECTIVE: This patient was seen and evaluated earlier. Discussed with the nursing staff. HISTORY OF PRESENT ILLNESS: This 51-year-old patient with recurrent fall admitted. The patient was admitted for recurrent falls secondary to syncopal episode, recurrent falls with syncopal episode. Denia ramirez had sustained a fracture of the right shoulder. The patient has a history of significant orthostat ic changes still. The patient also has elevated troponin level, but also noticed to have a drop in h emoglobin, so cardiac catheterization and intervention is on hold pending further evaluation. The lanie chen is also being followed by orthopedic. No obvious documented melena or bright red blood per rec leyda. The patient denies any abdominal pain. The patient denies having had any GI workup done in the past. PHYSICAL EXAMINATION: VITAL SIGNS: Blood pressure is 134/80, pulse 91, temperature is 98.6. The patient has significant o rthostatic changes. HEENT: Atraumatic, anicteric. NECK: Supple. HEART: S1, S2 heard. LUNGS: Bilateral air entry present. ABDOMEN: Soft. There is no mass palpable. No tenderness. EXTREMITIES: Right shoulder has a sling. The patient does have a comminuted fracture of the proxima l humerus. LABORATORY DATA: Hemoglobin 8.3, hematocrit 24, BUN . WBC 5.7, platelets 86, total bilirubin i s elevated 2.0. LDH of 285. IMPRESSION: This is a 51-year-old patient admitted with syncopal episode, found to have anemia with a drop in blood count. No obvious blood loss. The patient also was found to be thrombocytopenic. H james had a bone marrow done. The etiology for thrombocytopenia is unclear, and also patient has anemia, drop in blood count, rule out any gastrointestinal source of blood loss even though there is no obvi ous melena or bright red blood per rectum. Cardiology workup. We are waiting further GI workup. My real concern is this significant orthostatic hypertension. The patient needs to remain on the bed rest. We will consider doing an upper gastrointestinal endoscopy in a.m. after further discus jean marie with anesthesiologist and cardiology as the patient carries an increased risk. We are also xavi g to consider colonoscopy after the upper gastrointestinal endoscopic evaluation. As there is a real concern the tolerance of the patient to the anesthesia and also combing both procedures and preparin g the patient for a colonoscopy. We will continue to closely follow up his care and suggest further management based on the clinical course. A hematology note was also appreciated. I am waiting for t he bone marrow biopsy report. Thank you very much for allowing us to participate in the care of the patient. Jai Milner MD cc: [id number] TT: 10/28/2016 05:00:23 Confirmation # [id number] Dictation # [id number] tn
[2016-10-28 07:29] LABS: ADD MANUAL DIFF? NO
[2016-10-28 07:38] LABS: BASO # 0.01 K/mm3 (0.0-2.0); BASO % 0.2 % (0.0-3.0); EOS # 0.2 (0.0-0.7); EOS % 3.4 % (1.5-5.0); GRAN # 4.07 (1.4-6.5); GRAN % 72.7 % (50.0-68.0); LYMPH # 0.6 (1.2-3.4); LYMPH % 10.5 % (22.0-35.0); MEAN CELL VOLUME 86.9 fL (80.0-105.0); MEAN CORPUSCULAR HEMOGLOBIN 30.3 pg (25.0-35.0); MEAN CORPUSCULAR HGB CONC 34.9 g/dl (31.0-37.0); MEAN PLATELET VOLUME 9.5 fl (7.0-11.0); MONO # 0.7 (0.1-0.6); MONO % 13.2 % (1.0-6.0); PLATELET COUNT 84 10^3/uL (120.0-450.0); RED CELL DISTRIBUTION WIDTH 13.6 % (11.5-14.5); WHITE BLOOD COUNT 5.6 10^3/ul (4.5-11.0)
[2016-10-28 07:46] LABS: BLOOD UREA NITROGEN 18 mg/dL (7-21); CALCIUM 8.6 mg/dL (8.4-10.5); CARBON DIOXIDE 27 mmol/L (21-33); CHLORIDE 100 mmol/L (95-110); GFR AFRICAN-AMERICAN > 60; GLUCOSE,RANDOM 112 mg/dL (70-110); POTASSIUM 3.9 mmol/L (3.6-5.0); SODIUM 136 mmol/L (132-148)
[2016-10-28 07:57] LABS: HEMATOCRIT 23.2 % (42.0-52.0)
[2016-10-28] MEDS: Insulin Lispro (humaLOG) MEDIUM Coverage SC SCH ×4 (08:25→23:36)
--- NOTE | 2016-10-28 09:29 | PN ---
DATE: 10/28/2016 A 51-year-old male, schizophrenic, multiple orthostatic hypotensive syncopal episodes with fractured right shoulder, anemia, thrombocytopenia, recurrent, status post transfusion, but continued to drop h emoglobin down to 8.1 and platelet count of 84,000, status post bone marrow examination by Dr. Cameron. The patient is having an EEG today, followed by a colonoscopy to rule out other sources of disease. The patient is stable. Vital signs are stable. The patient has been able to get up without having recurrent syncope. He has been treated with midodrine to combat his orthostatic hypotension. He al so is diabetic. Blood sugars have been well controlled. PHYSICAL EXAMINATION: Unchanged. REVIEW OF SYSTEMS: A 12-point is unremarkable. The patient is on Invega, a subcutaneous antipsychotic injection every [address]. [address] Denise Rubio, psychiatrist, does not believe that this contributes to his disease, so that will be co ntinued as an outpatient. Pratik Lopez MD cc: [id number] TT: 10/28/2016 09:29:00 Confirmation # [id number] Dictation # [id number] en
[2016-10-28] MEDS ORDERED: Etomidate 20 mg/10ml Inj IV ONE (10:05)
[2016-10-28] MEDS ORDERED: Propofol 10 mg/ml Inj (20 ML) ONE (10:05)
[2016-10-28] MEDS ORDERED: Midazolam 2 MG/2 ML VIAL ONE (10:06)
[2016-10-28] MEDS ORDERED: Sodium Chloride 0.9% 1,000 ML IV SCH (10:30)
--- NOTE | 2016-10-28 14:33 | PN ---
DATE: 10/28/2016 This patient was seen and evaluated earlier today. The patient did have an upper GI endoscopy done i n view of the low hemoglobin and thrombocytopenia. Endoscopy did not reveal any source of blood loss . Endoscopy revealed only hiatus hernia and a Schatzki's ring. The patient will be kept on a clear liquid diet and scheduled for colonoscopy tomorrow. I have discussed with Dr. Zamudio regarding this pa tient in view of this partial significant postural hypotension. The patient also had a bone marrow - results pending. We will continue to closely follow up his care and suggest further management based on the clinical c ourse. Jai Milner MD cc: [id number] TT: 10/28/2016 14:32:30 Confirmation # [id number] Dictation # [id number] adi
[2016-10-28] MEDS: Magnesium Oxide 400 mg Tab UD PO SCH (14:41)
--- NOTE | 2016-10-28 14:59 | RAD ---
PROCEDURE: Radiographs of the Right Shoulder HISTORY: follow op on fx shoulder COMPARISON: 10/22/2016 FINDINGS: BONES: There is a displaced comminuted fracture of the right humeral neck. Alignment is unchanged JOINTS: Normal. Glenohumeral and acromioclavicular joints preserved. No osteoarthritis. SOFT TISSUES: Normal. OTHER FINDINGS: None. IMPRESSION: There is a displaced comminuted fracture of the right humeral neck. Alignment is unchanged
[2016-10-28] MEDS ORDERED: Peg-Electrolyte Oral Soln 4L (Golytely) PO ONE (15:00)
--- NOTE | 2016-10-28 23:51 | CP.PCM.PN ---
Subjective - Date & Time of Evaluation Date of Evaluation: 10/28/16 Time of Evaluation: 15:00 - Subjective Subjective: DATE: 10/28/2016 SUBJECTIVE: admitted with syncope and right humerus fracture. s/p 2 units of PRBC transfusion. Hemoglobin improved but declined again to 8.1 gm/dl. He also has thrombocytopenia with platelet count in 60k . He also developed NSTEMI with elevated cardiac enzymes. Denies any chest pain. Peripheral smear reviewed, showed no signs of hemolysis. Hepatitis, HIV serology negative, No overt GI bleed. he had slight hematuria, resolved now. EGD done today did not show any source of bleeding. Bone marrow flow cytometry negative for malignant cells. Core showed mild dysplastic changes. Cytogenetics and molecular studies pending. REVIEW OF SYSTEMS: As per HPI. Rest of 12-point review of systems reviewed and negative. PHYSICAL EXAMINATION: GENERAL: Comfortable in bed, in no acute distress, obese. VITAL SIGNS: reviewed. HEENT: Head atraumatic, normocephalic. Oral mucosa moist. Pupils equally reacting to light. NECK: No lymphadenopathy. CHEST: Air entry present, equal bilateral. No added sound. CARDIOVASCULAR: S1, S2 normal. No murmur, no gallop. ABDOMEN: Obese, nontender, soft, no hepatosplenomegaly. EXTREMITIES: No edema. SKIN: No petechia, no rash. PSYCH: Flat affect. CENTRAL NERVOUS SYSTEM: Alert, oriented x 3. No focal sensorimotor deficit. bruise on right shoulder stable, LABORATORY DATA: reviewed. MEDICATIONS: reviewed. ASSESSMENT: 1. Anemia. 2. Thrombocytopenia. 3. Splenomegaly. 4. Orthostatic hypotension. 5. Non-ST elevation myocardial infarction. 6. Bipolar disorder. 7. Syncope. 8. Diabetes mellitus type 2. PLAN: 1. Hematology. anemia, thrombocytopenia. Bone marrow no overt MDS. Molecular studies pending. Flow negative for malignant cells. Very Likely he has bone marrow suppression due to meds- invega. HIV, hepatitis serologies negative. Aranesp 100 mcgm ordered to be given today. 2. Syncope. He is still orthostatic, cardiology following. Hemoglobindeclined to 8.1gm/dl. We will continue to monitor CBC closely. 3. Diabetes mellitus. Blood sugar controlled on current medications. 4. Bipolar disorder; followed by Dr. Walker. 5. ID: HIV, Hepatitis serology negative. 6. EGD negative for bleeding source. Colonoscopy planned for tomorrow. Thank you, Dr. Lopez, for allowing us to participate in his care. We will continue to follow. Frannie Cameron MD Objective - Vital Signs/Intake and Output Vital Signs (last 24 hours): Temp Pulse Resp BP Pulse Ox 99.4 F 84 20 137/81 99 10/28/16 17:29 10/28/16 18:00 10/28/16 17:29 10/28/16 17:29 10/28/16 11:12 - Medications Medications: Current Medications Darbepoetin Hunter (Aranesp) 100 mcg SC ONCE ONE Stop: 10/28/16 15:02 Famotidine (Pepcid) 20 mg PO 1000,2200 [facility] Last Admin: 10/28/16 21:56 Dose: 20 mg Fludrocortisone Acetate (Florinef) 0.1 mg PO BID [facility] Last Admin: 10/28/16 17:38 Dose: 0.1 mg Sodium Chloride (Sodium Chloride 0.9%) 1,000 mls @ 50 mls/hr IV .Q20H [facility] Last Admin: 10/28/16 04:10 Dose: Not Given Insulin Human Lispro (Humalog Med) 0 units SC ACHS [facility] PRN Reason: Protocol Last Admin: 10/28/16 23:36 Dose: Not Given Magnesium Oxide (Mag-Ox) 400 mg PO DAILY [facility] Last Admin: 10/28/16 14:41 Dose: Not Given Metformin HCl (Glucophage) 850 mg PO BID [facility] Last Admin: 10/28/16 17:38 Dose: Not Given Midodrine (Proamatine) 2.5 mg PO TID [facility] Last Admin: 10/28/16 17:38 Dose: 2.5 mg - Labs Labs: 10/28/16 07:00 10/28/16 07:00 PT 11.2 Seconds (9.9-11.8) 10/22/16 08:44 INR 1.04 (0.93-1.08) 10/22/16 08:44 APTT 26.1 Seconds (23.7-30.8) 10/22/16 08:44
--- NOTE | 2016-10-28 23:58 | CP.PCM.PN ---
Subjective - Date & Time of Evaluation Date of Evaluation: 10/27/16 Time of Evaluation: 10:00 - Subjective Subjective: DATE: 10/27/2016 SUBJECTIVE: admitted with syncope and right humerus fracture. s/p 2 units of PRBC transfusion. Hemoglobin improved but declined again to 8.1 gm/dl. He also has thrombocytopenia with platelet count in 60k . He also developed NSTEMI with elevated cardiac enzymes. Denies any chest pain, no events overnight. Peripheral smear reviewed, showed no signs of hemolysis. Hepatitis, HIV serology negative, No overt GI bleed. he had slight hematuria, resolved now. Bone marrow flow cytometry negative for malignant cells. Core showed mild dysplastic changes. Cytogenetics and molecular studies pending. He is not able to walk due to orthostatic drop in BP. he feels dizzy upon getting out of bed. REVIEW OF SYSTEMS: As per HPI. Rest of 12-point review of systems reviewed and negative. PHYSICAL EXAMINATION: GENERAL: Comfortable in bed, in no acute distress, obese. VITAL SIGNS: reviewed. HEENT: Head atraumatic, normocephalic. Oral mucosa moist. Pupils equally reacting to light. NECK: No lymphadenopathy. CHEST: Air entry present, equal bilateral. No added sound. CARDIOVASCULAR: S1, S2 normal. No murmur, no gallop. ABDOMEN: Obese, nontender, soft, no hepatosplenomegaly. EXTREMITIES: No edema. SKIN: No petechia, no rash. PSYCH: Flat affect. CENTRAL NERVOUS SYSTEM: Alert, oriented x 3. No focal sensorimotor deficit. bruise on right shoulder stable, LABORATORY DATA: reviewed. MEDICATIONS: reviewed. ASSESSMENT: 1. Anemia. 2. Thrombocytopenia. 3. Splenomegaly. 4. Orthostatic hypotension. 5. Non-ST elevation myocardial infarction. 6. Bipolar disorder. 7. Syncope. 8. Diabetes mellitus type 2. PLAN: 1. Hematology. anemia, thrombocytopenia. Bone marrow no overt MDS. Molecular studies pending. Flow negative for malignant cells. Very Likely he has bone marrow suppression due to meds- invega. HIV, hepatitis serologies negative. Hb stable at 8.2 gm/dl. Will continue to monitor blood counts. 2. Syncope. He is still orthostatic, cardiology following. Hemoglobindeclined to 8.1gm/dl. We will continue to monitor CBC closely. 3. Diabetes mellitus. Blood sugar controlled on current medications. 4. Bipolar disorder; followed by Dr. Walker. 5. ID: HIV, Hepatitis serology negative. 6. EGD , Colonoscopy planned for tomorrow. Thank you, Dr. Lopez, for allowing us to participate in his care. We will continue to follow. Frannie Cameron MD Objective - Vital Signs/Intake and Output Vital Signs (last 24 hours): Temp Pulse Resp BP Pulse Ox 99.4 F 84 20 137/81 99 10/28/16 17:29 10/28/16 18:00 10/28/16 17:29 10/28/16 17:29 10/28/16 11:12 - Medications Medications: Current Medications Darbepoetin Hunter (Aranesp) 100 mcg SC ONCE ONE Stop: 10/28/16 15:02 Famotidine (Pepcid) 20 mg PO 1000,2200 COUNTS INCLUDE 234 BEDS AT THE [facility] Last Admin: 10/28/16 21:56 Dose: 20 mg Fludrocortisone Acetate (Florinef) 0.1 mg PO BID COUNTS INCLUDE 234 BEDS AT THE [facility] Last Admin: 10/28/16 17:38 Dose: 0.1 mg Sodium Chloride (Sodium Chloride 0.9%) 1,000 mls @ 50 mls/hr IV .Q20H COUNTS INCLUDE 234 BEDS AT THE [facility] Last Admin: 10/28/16 04:10 Dose: Not Given Insulin Human Lispro (Humalog Med) 0 units SC ACHS COUNTS INCLUDE 234 BEDS AT THE [facility] PRN Reason: Protocol Last Admin: 10/28/16 23:36 Dose: Not Given Magnesium Oxide (Mag-Ox) 400 mg PO DAILY COUNTS INCLUDE 234 BEDS AT THE [facility] Last Admin: 10/28/16 14:41 Dose: Not Given Metformin HCl (Glucophage) 850 mg PO BID COUNTS INCLUDE 234 BEDS AT THE [facility] Last Admin: 10/28/16 17:38 Dose: Not Given Midodrine (Proamatine) 2.5 mg PO TID COUNTS INCLUDE 234 BEDS AT THE [facility] Last Admin: 10/28/16 17:38 Dose: 2.5 mg - Labs Labs: 10/28/16 07:00 10/28/16 07:00 PT 11.2 Seconds (9.9-11.8) 10/22/16 08:44 INR 1.04 (0.93-1.08) 10/22/16 08:44 APTT 26.1 Seconds (23.7-30.8) 10/22/16 08:44
[2016-10-29 07:40] LABS: ADD MANUAL DIFF? NO
[2016-10-29 07:48] LABS: BASO # 0.01 K/mm3 (0.0-2.0); BASO % 0.2 % (0.0-3.0); EOS # 0.1 (0.0-0.7); EOS % 2.8 % (1.5-5.0); GRAN % 72.6 % (50.0-68.0); LYMPH # 0.6 (1.2-3.4); LYMPH % 11.7 % (22.0-35.0); MEAN CELL VOLUME 86.7 fL (80.0-105.0); MEAN CORPUSCULAR HEMOGLOBIN 31.3 pg (25.0-35.0); MEAN PLATELET VOLUME 9.8 fl (7.0-11.0); MONO # 0.6 (0.1-0.6); MONO % 12.7 % (1.0-6.0); PLATELET COUNT 75 10^3/uL (120.0-450.0); RED CELL DISTRIBUTION WIDTH 13.4 % (11.5-14.5)
[2016-10-29 07:54] LABS: INR 1.06 (0.93-1.08)
[2016-10-29 08:05] LABS: ALKALINE PHOSPHATASE 52 U/L (38-133); ALT/SGPT 27 U/L (7-56); AST/SGOT 16 U/L (15-59); BILIRUBIN,TOTAL 2.3 mg/dL (0.2-1.3); BLOOD UREA NITROGEN 16 mg/dL (7-21); CALCIUM 8.3 mg/dL (8.4-10.5); CARBON DIOXIDE 27 mmol/L (21-33); CHLORIDE 99 mmol/L (95-110); GFR AFRICAN-AMERICAN > 60; GLUCOSE,RANDOM 95 mg/dL (70-110); POTASSIUM 3.4 mmol/L (3.6-5.0); SODIUM 136 mmol/L (132-148); TOTAL PROTEIN 6.3 g/dL (5.8-8.3)
--- NOTE | 2016-10-29 08:27 | PN ---
DATE: 10/28/2016 REASON FOR CONSULTATION: Syncope, orthostatic hypotension, drop in hemoglobin, rule out gastrointest inal bleed, positive troponin. BRIEF CLINICAL HISTORY: This is a 51-year-old male with a past medical history significant for bipol ar disorder, came to the Emergency Room after a syncopal episode and sustained fracture of the right shoulder, history of previous syncope, dizziness and orthostatic hypotension. The patient was checke d multiple times orthostatic hypotension and still patient has orthostatic hypotension. This morning , patient was also orthostatic hypotension. Florinef and midodrine were started. This morning, the blood pressure lying was 139/78 and sitting 143 and standing 88 and patient symptomatic. PHYSICAL EXAMINATION: VITAL SIGNS: Temperature afebrile, heart rate , blood pressure 139/78 on lying, sitting 143/59, standing 88/51. The patient was symptomatic. HEENT: PERRLA. Extraocular muscles intact. NECK: Supple. No carotid bruits. No thyromegaly. CHEST: Clear to auscultation. HEART: S1, S2 regular. ABDOMEN: Soft. EXTREMITIES: Clubbing, cyanosis negative. BLOOD WORKUP: WBC 5.3, hemoglobin 8.1, hematocrit 23.2, platelet count 84. Chemistry shows sodium 1 30, potassium 3.9, chloride 100, carbon dioxide 27, anion gap of 13, BUN 18, creatinine 1.0. IMPRESSION: Orthostatic hypotension, drop in H and H, gastrointestinal bleed, fracture of humerus, b orderline positive troponin, so could be secondary to underlying coronary artery disease versus hemod ynamic instability. RECOMMENDATION: Continue Florinef, continue midodrine. Once the patient becomes euvolemic continue IV fluid until the patient becomes euvolemic. Continue GI workup. The patient had endoscopy yesterd ay. Today is going for colonoscopy. We will hold stress test or cardiac catheterization until the p atient is euvolemic and orthostatic is completely resolved. Once the orthostatic is resolved, consid er either stress test versus catheterization depending upon the clinical course. Most likely, a stre ss test because patient has a history of recent drop in H and H and if stress test is negative, we wi ll treat medically. Continue midodrine, continue Florinef, continue check for orthostatic. We will follow with you. Scheduled for a colonoscopy today. Further recommendation after the colonoscopy. We will follow with you. Thank you, Dr. Lopez, for providing us the opportunity in taking care of the patient. We will fo llow with you. History of thrombocytopenia also. Will follow with you. Gideon Zamudio MD cc: [id number] TT: 10/28/2016 16:05:35 Confirmation # [id number] Dictation # [id number] en
[2016-10-29] MEDS: Insulin Lispro (humaLOG) MEDIUM Coverage SC SCH ×4 (08:39→22:30)
[2016-10-29 09:04] LABS: HEMATOCRIT 22.2 % (42.0-52.0)
[2016-10-29] MEDS ORDERED: Potassium Chloride 20 mEq ER Tab PO ONE (09:15)
[2016-10-29] MEDS ORDERED: Magnesium Sulfate 2 GM in Sodium Chloride 0.9% 100 ML IVPB ONE (10:35)
--- NOTE | 2016-10-29 11:29 | PN ---
DATE: 10/29/2016 REASON FOR CONSULTATION AND FOLLOWUP: Syncope, orthostatic hypotension, dropping H and H, rule out g astrointestinal bleed, positive troponin. BRIEF CLINICAL HISTORY: This is a 51-year-old male with a past medical history significant for bipol ar disorder who came to the Emergency Room having a syncopal episode and sustained fracture of the sh oulder, history of presyncope, dizziness and orthostatic hypotension. The patient was checked multip le times for orthostatic hypotension. Still the patient has orthostatic hypotension. Going for colo noscopy today. Yesterday blood pressure dropped from 139/78 lying to 88 on standing and patient is v robert symptomatic. PHYSICAL EXAMINATION: VITAL SIGNS: Temperature afebrile, heart rate 84, blood pressure 138/81 ____ and 125/72 ____. HEENT: PERRLA. Extraocular muscles intact. NECK: Supple. No carotid bruits. No thyromegaly. CHEST: Clear to auscultation. HEART: S1, S2 regular. ABDOMEN: Soft. EXTREMITIES: Clubbing and cyanosis negative. BLOOD WORKUP: WBC 5, hemoglobin 8, hematocrit 22.2 and platelet count 75. Chemistry shows sodium __ __, potassium 3.4, chloride ____, carbon dioxide 27, anion gap of 13, BUN 16, creatinine 0.9, magnesi um 1.6. IMPRESSION: Hypomagnesemia, hypokalemia. Noting by mouth for colonoscopy. Orthostatic hypotension, anemia, thrombocytopenia, rule out gastrointestinal bleed, positive troponin secondary to hemodynam ic instability, also ____ anemia. RECOMMENDATION: The patient is not a candidate to go to the labor relations officer because the patient is bleeding , also thrombocytopenic. For complete cardiac workup we can do a stress test lying down. Will get t he colonoscopy and stress test tomorrow. Supplement electrolytes. Will follow with you. Further re commendation after the initial workup. Will follow with you. Continue Florinef. Continue on midodr ine. Continue check for orthostatic hypotension. Gideon Zamudio MD cc: [id number] TT: 10/29/2016 11:09:44 Confirmation # [id number] Dictation # [id number] mn 10/29/2016 10:28:41
[2016-10-29] MEDS: Magnesium Oxide 400 mg Tab UD PO SCH (11:53)
[2016-10-29] MEDS: Potassium Chloride 20 mEq 100 ML IVPB SCH ×2 (11:59→18:41)
[2016-10-29] MEDS: Sodium Chloride 0.9% 1,000 ML IV SCH (12:00)
[2016-10-29] MEDS ORDERED: Sodium Chloride 0.9% 1,000 ML IV SCH (15:30)
[2016-10-29] MEDS ORDERED: Propofol 10 mg/ml Inj (20 ML) ONE (16:30)
[2016-10-29] MEDS ORDERED: ePHEDrine 50 mg/ml Inj ONE (16:54)
[2016-10-29 17:33] VITALS: O2SAT 98
[2016-10-29] MEDS ORDERED: Darbepoetin Alfa 100 mcg/ml Inj SC STA (21:07)
--- NOTE | 2016-10-30 00:31 | CP.PCM.PN ---
Subjective - Date & Time of Evaluation Date of Evaluation: 10/29/16 Time of Evaluation: 18:00 - Subjective Subjective: DATE: 10/29/2016 SUBJECTIVE: admitted with syncope and right humerus fracture. s/p 2 units of PRBC transfusion. Hemoglobin improved but declined to 8.gm/dl. He also has thrombocytopenia with platelet count in 60k . He also developed NSTEMI with elevated cardiac enzymes. Denies any chest pain. Peripheral smear reviewed, showed no signs of hemolysis. Hepatitis, HIV serology negative, No overt GI bleed. he had slight hematuria, resolved now. EGD done today did not show any source of bleeding. Bone marrow flow cytometry negative for malignant cells. Core showed mild dysplastic changes. Cytogenetics and molecular studies showed deletion 5 Q. . REVIEW OF SYSTEMS: As per HPI. Rest of 12-point review of systems reviewed and negative. PHYSICAL EXAMINATION: GENERAL: Comfortable in bed, in no acute distress, obese. VITAL SIGNS: reviewed. HEENT: Head atraumatic, normocephalic. Oral mucosa moist. Pupils equally reacting to light. NECK: No lymphadenopathy. CHEST: Air entry present, equal bilateral. No added sound. CARDIOVASCULAR: S1, S2 normal. No murmur, no gallop. ABDOMEN: Obese, nontender, soft, no hepatosplenomegaly. EXTREMITIES: No edema. SKIN: No petechia, no rash. PSYCH: Flat affect. CENTRAL NERVOUS SYSTEM: Alert, oriented x 3. No focal sensorimotor deficit. bruise on right shoulder stable, LABORATORY DATA: reviewed. MEDICATIONS: reviewed. ASSESSMENT: 1. MDS, deletion 5 Q syndrome. Anemia. Thrombocytopenia. 2. Splenomegaly. 3.. Orthostatic hypotension. 4.. Non-ST elevation myocardial infarction. 5. Bipolar disorder. 6.. Syncope. 7.. Diabetes mellitus type 2. PLAN: 1. Hematology. Bone marrow cytogenetics showed deletion 5 Q consistent with MDS, deletion 5 Q syndrome. Revlimid is targeted treatment for 5 Q syndrome. Hb declined to 8 gm/dl. I unit of PRBC ordered today. will get approval for revlimid. Aranesp 100 mcgm today. Discussed with pharmacy to dispense drug. 2. Syncope. He is still orthostatic, cardiology following. Hemoglobindeclined to 8.1gm/dl. We will continue to monitor CBC closely. 3. Diabetes mellitus. Blood sugar controlled on current medications. 4. Bipolar disorder; followed by Dr. Walker. 5. ID: HIV, Hepatitis serology negative. 6. EGD negative for bleeding source. clonoscopy done today. discussed the diagnosis and treatment with patient. Discussed with him aranesp and common side effects. he agreed with the plan. . Thank you, Dr. Lopez, for allowing us to participate in his care. We will continue to follow. Frannie Cameron MD Objective - Vital Signs/Intake and Output Vital Signs (last 24 hours): Temp Pulse Resp BP Pulse Ox 99.2 F 89 15 140/73 98 10/29/16 17:53 10/29/16 18:00 10/29/16 17:53 10/29/16 17:53 10/29/16 17:53 Intake and Output: 10/29/16 10/30/16 18:59 06:59 Intake Total 3275 Output Total 1475 Balance 1800 - Medications Medications: Current Medications Famotidine (Pepcid) 20 mg PO 1000,2200 [facility] Last Admin: 10/29/16 22:27 Dose: 20 mg Fludrocortisone Acetate (Florinef) 0.1 mg PO BID [facility] Last Admin: 10/29/16 18:30 Dose: 0.1 mg Sodium Chloride (Sodium Chloride 0.9%) 1,000 mls @ 50 mls/hr IV .Q20H [facility] Last Admin: 10/29/16 12:00 Dose: 50 mls/hr Insulin Human Lispro (Humalog Med) 0 units SC ACHS [facility] PRN Reason: Protocol Last Admin: 10/29/16 18:32 Dose: Not Given Magnesium Oxide (Mag-Ox) 400 mg PO DAILY [facility] Last Admin: 10/29/16 11:53 Dose: Not Given Metformin HCl (Glucophage) 850 mg PO BID [facility] Last Admin: 10/29/16 18:30 Dose: Not Given Midodrine (Proamatine) 2.5 mg PO TID [facility] Last Admin: 10/29/16 18:33 Dose: 2.5 mg - Labs Labs: 10/29/16 07:00 10/29/16 07:00 PT 11.5 Seconds (9.9-11.8) 10/29/16 07:00 INR 1.06 (0.93-1.08) 10/29/16 07:00 APTT 26.1 Seconds (23.7-30.8) 10/22/16 08:44
[2016-10-30 06:57] VITALS: RESP 18
[2016-10-30] MEDS: Insulin Lispro (humaLOG) MEDIUM Coverage SC SCH ×3 (08:23→17:32)
--- NOTE | 2016-10-30 08:51 | PN ---
DATE: 10/30/2016 A 51-year-old white male, schizophrenic, admitted with anemia, orthostatic hypotension, multiple fal ls, fracture of the right shoulder. The patient is orthostatic. Also history of mild diabetes vin medrano, was found on bone marrow to have a mutation deletion consistent with MDS, probable cause of his anemia and thrombocytopenia. The patient will need Aranesp and ____ by Dr. Cameron. The patient will be transfused today. His hemoglobin was down to 8.1 today. Platelet count is 75,000. White count is normal. Otherwise, vital signs are stable. Potassium is 3.4. Blood sugar is 95. The patient is status post EGD, which was normal, and a colonoscopy. No signs of active bleeding. The patient will be transfused, and hopefully, approved for treatment of his MDS. The patient has al so been treated with midodrine for his orthostasis. He still remains mildly symptomatic. REVIEW OF SYSTEMS: A 12-point review of systems is unremarkable. PHYSICAL EXAMINATION: Unchanged. SUBJECTIVE: The patient is somewhat lethargic, and he does have a history of depression and schizoph jeffery. Pratik Lopez MD cc: [id number] TT: 10/30/2016 08:50:05 Confirmation # [id number] Dictation # [id number] adi
--- NOTE | 2016-10-30 09:05 | PN ---
DATE: 10/30/2016 REASON FOR CONSULTATION AND FOLLOWUP: Syncope, orthostatic hypotension, drop in H and H, rule out ga strointestinal bleed; drop in hemoglobin and hematocrit, status post endoscopy, status post colonosco py; borderline positive troponin on admission. BRIEF CLINICAL HISTORY: This is a 51-year-old male with a past medical history significant for ortho static hypotension in the past who had syncope and sustained fracture of the right humerus after a fa ll. The patient was found to have significant orthostatic hypotension and also low hemoglobin and pl atelet count was low, and got 2 units of blood before and is getting blood this morning. The patient underwent endoscopy that shows mild gastroparesis, gastric bezoar, hiatal hernia, and Schatzki ring. Colonoscopy yesterday: No active bleeding source was determined. Since patient is dropping H and H with borderline troponin on admission, it is not safe to do the cardiac catheterization so decided to do the stress test before sending the patient to rehab facility to rule out any ischemic substrate versus severe hemoglobin causing this borderline troponin positive. So the patient is scheduled for a stress test today. Last night patient had fever, but now temperature is 98, so will do the stress test today. PHYSICAL EXAMINATION: VITAL SIGNS: Temperature afebrile, heart rate 74, blood pressure 123/69. HEENT: PERRLA. Extraocular muscles intact. NECK: Supple. No carotid bruits. No thyromegaly. CHEST: Clear to auscultation. HEART: S1, S2 regular. ABDOMEN: Soft. EXTREMITIES: Clubbing and cyanosis negative. BLOOD WORKUP: WBC 5.0, hemoglobin 8, hematocrit 22.2, platelet count 75. Chemistry shows sodium 130 , potassium 3.4, chloride 99, carbon dioxide 27, anion gap of 13, BUN 16, creatinine 0.9. IMPRESSION: Anemia, status post multiple packed red blood cells transfusions, orthostatic hypotensio n. Tilt was positive yesterday. On Florinef and midodrine. Status post red blood cells transfusion . Last echocardiogram 10/23/2016 showed function is within normal, no segmental wall motion abnormal ity, right ventricular systolic pressure at 32 and normal mitral valve structure reported, normal tri cuspid valve structure reported, read by Dr. Hernandez. RECOMMENDATION: Will get a stress test today. If negative, probably patient will [facility]. Continue Florinef. Continue midodrine. Will try to get orthostatics again. Gideon Zamudio MD cc: [id number] TT: 10/30/2016 09:04:27 Confirmation # [id number] Dictation # [id number] mn
[2016-10-30] MEDS ORDERED: Aminophylline 25 mg/ml Inj ONE (09:35)
[2016-10-30 13:34] LABS: ADD MANUAL DIFF? NO
[2016-10-30 13:47] LABS: ALB/GLOB RATIO 0.9 (1.1-1.8); ALKALINE PHOSPHATASE 54 U/L (38-133); ALT/SGPT 28 U/L (7-56); AST/SGOT 19 U/L (15-59); BILIRUBIN,TOTAL 3.8 mg/dL (0.2-1.3); BLOOD UREA NITROGEN 14 mg/dL (7-21); CALCIUM 8.1 mg/dL (8.4-10.5); CARBON DIOXIDE 27 mmol/L (21-33); CHLORIDE 97 mmol/L (98-107); GFR AFRICAN-AMERICAN > 60; GLUCOSE,RANDOM 111 mg/dL (70-110); MAGNESIUM 1.9 mg/dL (1.7-2.2); POTASSIUM 3.8 mmol/L (3.6-5.0); SODIUM 130 mmol/L (132-148); TOTAL PROTEIN 6.3 g/dL (5.8-8.3)
[2016-10-30 13:49] LABS: BASO # 0.01 K/mm3 (0.0-2.0); BASO % 0.2 % (0.0-3.0); EOS # 0.1 (0.0-0.7); EOS % 1.7 % (1.5-5.0); GRAN # 4.32 (1.4-6.5); LYMPH # 0.6 (1.2-3.4); LYMPH % 9.9 % (22.0-35.0); MEAN CELL VOLUME 85.7 fL (80.0-105.0); MEAN CORPUSCULAR HEMOGLOBIN 30.7 pg (25.0-35.0); MEAN CORPUSCULAR HGB CONC 35.8 g/dl (31.0-37.0); MEAN PLATELET VOLUME 9.4 fl (7.0-11.0); MONO # 0.8 (0.1-0.6); MONO % 13.2 % (1.0-6.0); PLATELET COUNT 82 10^3/uL (120.0-450.0); RED CELL DISTRIBUTION WIDTH 13.3 % (11.5-14.5); WHITE BLOOD COUNT 5.8 10^3/ul (4.5-11.0)
--- NOTE | 2016-10-30 14:03 | PN ---
DATE: 10/30/2016 Seen and examined at the bedside this afternoon. He went for a stress test earlier today. He went f or a colonoscopy yesterday; found to have hemorrhoids, no polyps. The prep was fair. No reports of any overt GI bleed. The patient denies any nausea, vomiting, or abdominal pain. Denies any fever, c hills, shortness of breath or chest pain. VITAL SIGNS: Temperature is 98.1, blood pressure 123/69, his pulse 72, respirations 18. LABORATORY DATA: Noted for today is POC glucose at 127. PHYSICAL EXAMINATION: HEENT: Sclerae anicteric. NECK: Supple. CARDIAC: S1, S2. LUNGS: Decreased breath sounds but good air entry, no rales or wheeze. ABDOMEN: With bowel sounds. Soft. It does not appear distended. Nontender on palpation. ASSESSMENT: Anemia, status post packed red blood cells. He had endoscopy and colonoscopy, was found to have a Schatzki's ring, hemorrhoids with fair preparation. Recommend repeat colonoscopy. He is status post a stress test. The patient also experiences orthostatic hypotension with positive tilt t est. He also has fracture of the right shoulder, thrombocytopenia, history of schizophrenia and elev ated troponins. PLAN: Continue diet as tolerated. Will monitor his H and H. The patient is on Pepcid b.i.d. He is on midodrine and Florinef. Follow up stress test report as per hematology and cardiology. The terra ent was seen and case discussed with Dr. Milner who is covering rounds. Jewell MOMIN cc: [id number] TT: 10/30/2016 14:03:16 Confirmation # [id number] Dictation # [id number] mn
[2016-10-30] MEDS: Magnesium Oxide 400 mg Tab UD PO SCH (14:27)
[2016-10-30] MEDS: Sodium Chloride 0.9% 1,000 ML IV SCH (14:29)
[2016-10-30 17:24] VITALS: BP 148/86; PULSE 73; TEMP 98.5
--- NOTE | 2016-10-30 22:16 | CARD ---
APPROVED REPORT Protocol: LEXISCAN Test Type: Lexiscan Sestamibi Stress Test Attending Physician: Dr. Gideon Charles Referring Physician: Dr. Morena Monet Test Indications: Syncope Height:6 ft 0 in Weight:170lbs Medications: Arancep Pepcid Florinef Insulin Glucophage Medical History: 51y/o male had syncopal episode Target HR: 171 bpm Resting ECG: RSR Resting Heart Rate: 85 bpm Resting Blood Pressure: 130/80mmHg Submaximum (85%): 145 bpm PROCEDURE Pharmacologic stress testing was performed using 0.4mg per 5ml of regadenoson given intravenously over 7-10 seconds. POST EXERCISE Reason for Termination: Protocol completed Target HR: No Max HR: 117 bpm 68% of Maximum Predicted HR: 171 bpm Exercise duration: 05:16 min:sec, 0 Stage Exercise capacity: 1.0METs Max Blood Pressure: 130/80mmHg Blood Pressure response to exercise: normal resting BP - appropriate response Heart Rate response to exercise: appropriate Chest Pain: No, none Angina index: 0 Arrhythmia: No, none ST Change: No, none Deviation: 0 mm TEST SUMMARY [id number]. INFUSIONDOSE 101:[id number]/.0. INFUSIONDOSE 201:[id number]/68.1. INFUSIONDOSE 301:[id number]/68.2. INFUSIONDOSE 401:[id number]/64.2. INFUSIONDOSE 501:[id number]/64.0. INFUSIONDOSE 600:[id number]/.0. INTERPRETATION Stress EKG Conclusion: IV LEXISCAN NUCLEAR STRESS TEST NEGATIVE FOR CHEST PAIN AND NEGATIVE FOR ST-T CHANGES. NUCLEAR SCAN REPORT TO FOLLOW. Signed by Gideon Charles Electronically Approved: 10/30/2016 11:32:24 EXAM: Myocardial Perfusion REST/STRESS Stress Test Type: Pharmacologic Imaging Protocol Rest Spect myocardial perfusion imaging was performed in supine position 65 minutes following the injection of 10.6 mCi of Tc-99 Myoview. At peak stress, the patient was injected intravenously with 30.8mCi of Tc-99 tetrofosmin after an infusion time of 0 minutes and 10 seconds. Gated Stress Spect was performed 75 minutes after intravenous Tc-99 Myoview injection. The images were gated to evaluate regional wall motion and calculate ventricular ejection fraction.Images were reconstructed using backfilter projection method in short horizontal and verticle long axis. Spect slices were generated. LV Perfusion The quality of the study is good. The left ventricle is normal in size with thickened myocardium. The right ventricle is unremarkable. The lung uptake is within normal limits. The distribution of tracer reveals normal uptake pattern throughout the LV myocardium on the stress study. The rest myocardial perfusion study shows no significant change. Wall Motion Wall motion study shows good contractility of the left ventricle. LVEF = 76%. Conclusion 1. Normal SPECT myocardial perfusion study. 2. Normal gated wall motion of the left ventricle. 3. In comparison with the last study of 02/05/2016, there is no significant change
--- NOTE | 2016-10-31 10:26 | DS ---
The patient is a 51-year-old white male with a long history of paranoid schizophrenia. The patient a lso has history of orthostatic hypotension, mild diabetes mellitus. The patient had had multiple syn copal episodes, followed by a fracture of the right shoulder; was admitted in the hospital, was found to have severe anemia and thrombocytopenia. Workup, including an upper endoscopy, colonoscopy, labo ratory studies, and eventually a bone marrow which revealed MBS. The patient was treated with blood transfusions; also with Aranesp. He will be scheduled for Revlimid treatment by heme/onc as an outp atient. The patient was accepted to a rehabilitation facility to continue rehab with his orthostatic hypotension, and to continue treatment for his schizophrenia. The patient was admitted on 10/23/19, discharged on 10/30/2016. FINAL DISCHARGE DIAGNOSES: Recurrent syncope, orthostatic hypotension, a fracture of the right shoul rohan, history of schizophrenia, myelodysplastic syndrome, chronic anemia, and chronic thrombocytopenia . Pratik Lopez MD cc: [id number] TT: 10/31/2016 10:25:55 jn
[2016-11-04 11:50] LABS: PLT AB :GP IA/IIA Negative; PLT AB :GP IB/IX Negative; PLT AB :GP IIB/IIA Negative; PLT AB :HLA CLASS I Negative
[2016-11-05] MEDS ORDERED: Darbepoetin Alfa 100 mcg/ml Inj SC SCH (10:00)
--- NOTE | 2016-11-12 08:07 | DS ---
A 51-year-old white male with long history of schizophrenia, and had multiple episodes of syncope occ urring 5 times on the day of admission. The patient was admitted on 10/28/16 and discharged home on 11/01/16. The patient was admitted on 10/28, and the patient was admitted with a fractured right shoul rohan seen in consultation by Dr. Kerns. The patient had severe schizophrenia, being treated wi th IM medication Invega at home. The patient, while in the hospital, had recurrent orthostatic hypot ension, also was found to have recurrent anemia and thrombocytopenia, upper and lower endoscopy done without evidence of bleeding. The patient had a bone marrow done by Dr. Cameron and was found to have myelodysplastic syndrome and will be evaluated for possible treatment with a biological. The patient eventually was able to be discharged to a facility for rehabilitation to continue treatment of his o rthostatic hypotension and then to await approval for his treatment of his myelodysplastic syndrome. FINAL DISCHARGE DIAGNOSES: Recurrent syncope, orthostatic hypotension, fracture of right shoulder, s evere anemia and thrombocytopenia secondary to myelodysplastic syndrome. Pratik Lopez MD cc: [id number] TT: 11/11/2016 10:17:28 jn 11/11/2016 14:20:27
[2016-11-21] MEDS ORDERED: PALIPERIDONE PALMITATE 156 MG IM SCH (10:00)
--- NOTE | 2016-11-28 10:52 | HP ---
HISTORY OF PRESENT ILLNESS: The patient is a 51-year-old white male with a long history of psychosis and schizophrenia, being treated at [facility] with injectable medication every 2 we eks. The patient also has history of profound multiple episodes of syncope. He had approximately 5 episodes of syncope in a period of 1 day resulting in fracture of his right upper extremity. The marisa lopez came to the ER after these multiple falls with bruising on his face and head and also a right up per extremity complicated fracture. The patient was seen in the ER by Dr. Kerns and patient w as admitted to the hospital. The patient was also found to be, on admission, anemic with a hemoglobi n of 8.3 and a platelet count of 61,000. The patient also was found to have mildly elevated blood maldonado gar of 134. Kidney function was normal. The patient was admitted through the ER. PHYSICAL EXAMINATION: GENERAL: A well-developed, well-nourished white male with an immobilized right shoulder in a sling, bruising on the right shoulder and upper arm, contusion of the right head and face. Otherwise, the p atient is alert and oriented x 3. Neurologic examination grossly intact. HEENT: Essentially within normal limits. HEART: Regular sinus rhythm. No S3 or murmurs. CHEST: Clear to auscultation and percussion. EXTREMITIES: Without cyanosis, clubbing or edema. IMPRESSION AND PLAN: Multiple syncopal episodes, orthostatic hypotension, poorly controlled diabetes mellitus, severe anemia and thrombocytopenia. Rule out myelodysplastic syndrome, rule out orthostat ic hypotension. Fracture of right upper shoulder. Pratik Lopez MD cc: [id number] TT: 11/28/2016 10:36:39 [email or web address]
== END 2016-10-30 21:37 | DRG 281 ==
LOC: ED 07:37 → ERH 11:40 → 2RSO 15:45
PROVIDERS: ADMIT Internal Medicine; ATTEND Internal Medicine
PROC: 30233N1 Transfusion of Nonautologous Red Blood Cells into Peripheral Vein, Percutaneous Approach (ICD-10-PCS; 2016-10-23)
PROC: 07DR3ZX Extraction of Iliac Bone Marrow, Percutaneous Approach, Diagnostic (ICD-10-PCS; principal; 2016-10-25)
PROC: 0DJ08ZZ Inspection of Upper Intestinal Tract, Via Natural or Artificial Opening Endoscopic (ICD-10-PCS; 2016-10-28)
PROC: 0DJD8ZZ Inspection of Lower Intestinal Tract, Via Natural or Artificial Opening Endoscopic (ICD-10-PCS; 2016-10-29)
DX: I95.1 Orthostatic hypotension (principal); I21.4 Non-ST elevation (NSTEMI) myocardial infarction; N17.9 Acute kidney failure, unspecified; E11.43 Type 2 diabetes mellitus with diabetic autonomic (poly)neuropathy; K31.84 Gastroparesis; T18.2XXA Foreign body in stomach, initial encounter; E11.22 Type 2 diabetes mellitus with diabetic chronic kidney disease; D69.6 Thrombocytopenia, unspecified; E13.649 Other specified diabetes mellitus with hypoglycemia without coma; K92.2 Gastrointestinal hemorrhage, unspecified; F20.0 Paranoid schizophrenia; N20.2 Calculus of kidney with calculus of ureter; S42.213A Unspecified displaced fracture of surgical neck of unspecified humerus, initial encounter for closed fracture; Q43.8 Other specified congenital malformations of intestine; E83.42 Hypomagnesemia; D46.9 Myelodysplastic syndrome, unspecified; D72.829 Elevated white blood cell count, unspecified; E03.9 Hypothyroidism, unspecified; N18.9 Chronic kidney disease, unspecified; I12.9 Hypertensive chronic kidney disease with stage 1 through stage 4 chronic kidney disease, or unspecified chronic kidney disease; E87.6 Hypokalemia; E86.0 Dehydration; F31.9 Bipolar disorder, unspecified; I08.1 Rheumatic disorders of both mitral and tricuspid valves; K22.2 Esophageal obstruction; K44.9 Diaphragmatic hernia without obstruction or gangrene; K64.9 Unspecified hemorrhoids; E66.9 Obesity, unspecified; R29.6 Repeated falls; W19.XXXA Unspecified fall, initial encounter; Z79.84 Long term (current) use of oral hypoglycemic drugs; Z91.81 History of falling; R00.0 Tachycardia, unspecified; R16.1 Splenomegaly, not elsewhere classified; I25.10 Atherosclerotic heart disease of native coronary artery without angina pectoris; R53.81 Other malaise; Z68.30 Body mass index [BMI] 30.0-30.9, adult

== ENCOUNTER 2018-08-06 12:34 | Outpatient (CLI) | payer MEDICARE, MEDICAID | END 2018-08-06 12:35 | disposition home or self-care (01) | LOC: RAD 12:34 ==

== ENCOUNTER 2018-10-08 08:48 | Outpatient (CLI) | payer MEDICARE, MEDICAID | END 2018-10-08 08:49 | disposition home or self-care (01) | LOC: RAD 08:48 | DX: M54.6 Pain in thoracic spine (principal) ==

== ENCOUNTER 2018-11-14 07:51 | Outpatient (CLI) | payer MEDICARE, MEDICAID | END 2018-11-14 07:52 | disposition home or self-care (01) | LOC: RAD 07:51 ==

== ENCOUNTER 2018-11-23 09:00 | Outpatient (CLI) | payer MEDICARE, MEDICAID | END 2018-11-23 09:01 | disposition home or self-care (01) | LOC: RAD 09:00 ==

== ENCOUNTER 2018-12-11 09:32 | Outpatient (CLI) | payer MEDICARE, MEDICAID | END 2018-12-11 09:33 | disposition home or self-care (01) | LOC: RAD 09:32 ==